=== PATIENT | male | born 1935 | race Caucasian/White ===

== ENCOUNTER 2017-02-19 07:14 | Day surgery (SDC) | payer MEDICARE, OTHER ==
[~2017-02-19 07:14] MED LIST: Lactated Ringers 1,000 ML IV SCH; Lidocaine 1%/Sod Bicarbonate in NS 8.4% 1 ML Syringe IV PRN; Propofol 200 MG/20 ML SDV ONE; Sodium Chloride 0.9% 10 ML Syringe FLUSH PRN
--- NOTE | 2017-02-19 07:47 | PCM.PREANE ---
Preanesthetic Assessment - Anesthesia/Transfusion/Family Hx Anesthesia History: Prior Anesthesia Without Reaction Family History of Anesthesia Reaction: No Transfusion History: No Prior Transfusion(s) - Review of Systems General: No Symptoms Pulmonary: No Symptoms Cardiovascular: No Symptoms Gastrointestinal: No symptoms Neurological: No Symptoms Other: Reports: None - Physical Assessment NPO Status Date: 02/18/17 NPO Status Time: 22:00 Height: 1.73 m Weight: 83.461 kg ASA Class: 2 Mental Status: Alert & Oriented x3 Airway Class: Mallampati = 1 Dentition: Reports: Partial Thyro-Mental Finger Breadths: 3 Mouth Opening Finger Breadths: 3 ROM/Head Extension: Full Lungs: Clear to auscultation, Normal respiratory effort Cardiovascular: Regular Rate, Regular Rhythm - Allergies Allergies/Adverse Reactions: Allergies Allergy/AdvReac Type Severity Reaction Status Date / Time ciprofloxacin [From Cipro] Allergy Rash Verified 02/16/17 12:47 rosuvastatin calcium Allergy Muscle Verified 02/16/17 12:47 [From Crestor] Weakness - Anesthesia Plan Beta Mark: Other (pt took coreg this am) Med Last Dose Date: 02/19/17 Med Last Dose Time: 06:45 - Acknowledgements Anesthesia Type Planned: MAC Pt an Appropriate Candidate for the Planned Anesthesia: Yes Alternatives and Risks of Anesthesia Discussed w Pt/Guardian: Yes Pt/Guardian Understands and Agrees with Anesthesia Plan: Yes PreAnesthesia Questionnaire HEENT History: Reports: Cataract, Hard of hearing, Impaired vision, Other (see below) Other HEENT History: left eye blindness Cardiovascular History: Reports: High cholesterol, Hypertension, Other (see below) Other Cardiovascular History: heart event monitor Respiratory History: Reports: None, Other (see below) Other Respiratory History: pulmonary nodule Gastrointestinal History: Reports: None Genitourinary History: Reports: BPH 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 Musculoskeletal History: Reports: Arthritis, Other (see below) Other Musculoskeletal History: polymyocystis Neurological History: Reports: None Psychiatric History: Reports: None Endocrine/Metabolic History: Reports: None Hematologic History: Reports: None Immunologic History: Reports: None Oncologic (Cancer) History: Reports: Non-Hodgkin's Lymphoma, Other (see below) Other Oncologic History: follicular lymphoma Dermatologic History: Reports: None - Past Surgical History Head Surgeries/Procedures: Reports: None HEENT Surgical History: Reports: Cataract surgery, Tonsillectomy Cardiovascular Surgical History: Reports: None Respiratory Surgical History: Reports: None GI Surgical History: Reports: Colonoscopy, Hernia, abdominal Female Surgical History: Reports: None Male Surgical History: Reports: None Endocrine Surgical History: Reports: None Neurological Surgical History: Reports: None Musculoskeletal Surgical History: Reports: None Oncologic Surgical History: Reports: None Dermatological Surgical History: Reports: None (no anesthetic complications noted) - SUBSTANCE USE Smoking Status *Q: Never Smoker Recreational Drug Use History: No - HOME MEDS Home Medications: Home Meds Clopidogrel [Plavix] 75 mg PO DAILY 03/20/16 [History] Ergocalciferol (Vitamin D2) [Vitamin D] 400 mg PO DAILY 03/20/16 [History] Niacin 250 mg PO DAILY 03/20/16 [History] [place]-3 Fatty Acids [Fish Oil] 300 mg PO DAILY 03/20/16 [History] Tamsulosin [Flomax] 0.4 mg PO DAILY 03/20/16 [History] amLODIPine Besylate [Amlodipine Besylate] 10 mg PO DAILY 03/20/16 [History] Aspirin [Children's Aspirin] 81 mg PO DAILY 02/16/17 [History] Carvedilol [Coreg] 25 mg PO BID 02/16/17 [History] Isosorbide Mononitrate [Imdur] 15 mg PO DAILY 02/16/17 [History] Nitroglycerin [Nitrostat] 0.4 mg SL ASDIRECTED PRN 02/16/17 [History] - CURRENT (IN HOUSE) MEDS Current Meds: Current Medications Lactated Ringer's (Ringers, Lactated) 1,000 mls @ 125 mls/hr IV ASDIRECTED ELIZABETH Stop: 02/19/17 23:00 Lidocaine/Sodium Bicarbonate (Buffered Lidocaine 1% In Ns 8.4%) 0.25 ml IV ONETIME PRN PRN Reason: Prior to IV Start Stop: 02/19/17 18:00 Sodium Chloride (Saline Flush) 10 ml FLUSH ASDIRECTED PRN PRN Reason: Keep Vein Open Stop: 02/19/17 18:00 Discontinued Medications Propofol (Diprivan 20 Ml) Confirm Administered Dose 200 mg .ROUTE .STK-MED ONE Stop: 02/19/17 07:06
--- NOTE | 2017-02-19 08:30 | PCM.OPNOTE ---
- General Post-Op/Procedure Note Date of Surgery/Procedure: 02/19/17 Operative Procedure(s): EGD with bx Pre Op Diagnosis: abnormal CT showing thickening of the stomach Post-Op Diagnosis: Same Anesthesia Technique: MAC Primary Surgeon: Aroldo Patel EBL in mLs: 0 Condition: Good
--- NOTE | 2017-02-19 08:31 | PCM48HPAN ---
Post Anesthesia Note - EVALUATION WITHIN 48HRS OF ANESTHETIC Vital Signs in Normal Range: Yes Patient Participated in Evaluation: Yes Respiratory Function Stable: Yes Airway Patent: Yes Cardiovascular Function Stable: Yes Hydration Status Stable: Yes Pain Control Satisfactory: Yes Nausea and Vomiting Control Satisfactory: Yes Mental Status Recovered: Yes
[2017-02-19 08:55] VITALS: BP 130/59
--- NOTE | 2017-02-19 13:07 | OR ---
DATE OF OPERATION: 02/19/2017 SURGEON: Aroldo Patel MD PREOPERATIVE DIAGNOSIS: Abnormal CT scan showing thickening of the stomach. POSTOPERATIVE DIAGNOSIS: Abnormal CT scan showing thickening of the stomach. OPERATION PERFORMED: Esophagogastroduodenoscopy with biopsy. FINDINGS: Some swelling around the ampulla, which was biopsied. The duodenal bulb showed some erythema, which was biopsied. The antrum showed some petechiae hemorrhage, which was biopsied. J-maneuver showed small sliding hiatal hernia with GE junction located between 35 and 40 cm. Rest of the esophagus was unremarkable. The Z-line at the GE junction was sharp. Mild duodenitis. Some chronic gastritis. ANESTHESIA: Procedure done under IV sedation. DESCRIPTION OF PROCEDURE: The patient was taken to the endoscopy room and placed in a supine position, connected to monitoring equipment, given IV sedation, and placed in left lateral position. Bite block was inserted and video Olympus gastroscope placed in the posterior oropharynx under direct vision, threaded past the cricopharyngeus, down the esophagus, and into the stomach. The stomach was insufflated, and the scope was passed through the pylorus to the second portion of the duodenum. Ampulla was seen showing some swelling, and this was biopsied. Duodenal bulb was unremarkable, except for some erythema, and this was biopsied. The antrum showed some petechiae and some thinning consistent with some chronic gastritis, and this was biopsied. Peristalsis was present in the stomach. J-maneuver showed hiatal hernia. Fundus, body, and cardia of the stomach were viewed. Scope withdrawn to the GE junction, which showed a sliding hiatal hernia. The GE junction did not have any acute pathology. The rest of the esophagus viewed and was normal. The patient tolerated the procedure and sent to recovery room in a stable condition. Specimen sent to pathology in a labeled container. The patient will be followed up in the clinic. ESTIMATED BLOOD LOSS: MMODAL /[id number]
== END 2017-02-19 09:16 | disposition home or self-care (01) ==
LOC: JD.SDS 07:14
PROVIDERS: ATTEND Surgery
PROC: 0DB98ZX Excision of Duodenum, Via Natural or Artificial Opening Endoscopic, Diagnostic (ICD-10-PCS; principal; 2017-02-19)
PROC: 0DB68ZX Excision of Stomach, Via Natural or Artificial Opening Endoscopic, Diagnostic (ICD-10-PCS; 2017-02-19)
PROC: 0DB48ZX Excision of Esophagogastric Junction, Via Natural or Artificial Opening Endoscopic, Diagnostic (ICD-10-PCS; 2017-02-19)
DX: K29.80 Duodenitis without bleeding (principal); K44.9 Diaphragmatic hernia without obstruction or gangrene; N40.0 Benign prostatic hyperplasia without lower urinary tract symptoms; E78.00 Pure hypercholesterolemia, unspecified; I10 Essential (primary) hypertension; M19.90 Unspecified osteoarthritis, unspecified site; C85.90 Non-Hodgkin lymphoma, unspecified, unspecified site; Z98.49 Cataract extraction status, unspecified eye; Z90.89 Acquired absence of other organs; Z98.890 Other specified postprocedural states; Z79.02 Long term (current) use of antithrombotics/antiplatelets; Z79.82 Long term (current) use of aspirin; Z79.899 Other long term (current) drug therapy; Z88.1 Allergy status to other antibiotic agents; Z88.8 Allergy status to other drugs, medicaments and biological substances
CPT/HCPCS: 43239; 88305; J7120; J2704

== ENCOUNTER 2018-04-12 10:26 | Emergency (ER) | payer MEDICARE, BC ==
[2018-04-12 10:59] VITALS: BP 140/72
[2018-04-12] MEDS ORDERED: Sodium Chloride 0.9% 10 ML Syringe FLUSH PRN (11:10)
--- NOTE | 2018-04-12 11:24 | EDM.PDOC ---
ED HPI GENERAL MEDICAL PROBLEM - General Chief Complaint: General Stated Complaint: WEAK X 3 DAY SINCE CHEMO Time Seen by Provider: 04/12/18 11:06 Source of Information: Reports: Patient History Limitations: Reports: No Limitations - History of Present Illness INITIAL COMMENTS - FREE TEXT/NARRATIVE: 82 y/o M with hx lymphoma presents with generalized weakness. He is on "maintenance" chemotherapy according to his . Completed a more intensive round of chemotherapy a few weeks ago and now is getting weekly chemo at [facility] in in [place]. Starting 3 days ago, started feeling generally weak. Has nasal congestion and a mild cough. No fever. Just feels weak all over. NO focal weakness. No body aches. No SOB/CP. No abd pain/vomiting/diarrhea. No dysuria. No skin complaint. Called his cancer center and was advised to come here. Next chemo session is scheduled for Sunday. - Related Data Allergies Allergy/AdvReac Type Severity Reaction Status Date / Time ciprofloxacin [From Cipro] Allergy Rash Verified 04/12/18 10:59 rosuvastatin calcium Allergy Muscle Verified 04/12/18 10:59 [From Crestor] Weakness Home Meds: Home Meds Clopidogrel [Plavix] 75 mg PO DAILY 03/20/16 [History] Tamsulosin [Flomax] 0.4 mg PO DAILY 03/20/16 [History] amLODIPine Besylate [Amlodipine Besylate] 10 mg PO DAILY 03/20/16 [History] Carvedilol [Coreg] 25 mg PO BID 02/16/17 [History] Past Medical History HEENT History: Reports: Cataract, Hard of Hearing, Impaired Vision, Other (See Below) Other HEENT History: left eye blindness Cardiovascular History: Reports: High Cholesterol, Hypertension, Other (See Below) Other Cardiovascular History: heart event monitor Respiratory History: Reports: None, Other (See Below) Other Respiratory History: pulmonary nodule Gastrointestinal History: Reports: None Genitourinary History: Reports: BPH 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 Musculoskeletal History: Reports: Arthritis, Other (See Below) Other Musculoskeletal History: polymyocystis Neurological History: Reports: None Psychiatric History: Reports: None Endocrine/Metabolic History: Reports: None Hematologic History: Reports: None Immunologic History: Reports: None Oncologic (Cancer) History: Reports: Non-Hodgkin's Lymphoma, Other (See Below) Other Oncologic History: follicular lymphoma Dermatologic History: Reports: None - Past Surgical History HEENT Surgical History: Reports: Cataract Surgery, Tonsillectomy GI Surgical History: Reports: Colonoscopy, Hernia, Abdominal Social & Family History - Family History Neurological: Reports: CVA (both parents) - Caffeine Use Caffeine Use: Reports: Coffee ED ROS GENERAL - Review of Systems Review Of Systems: See Below Constitutional: Reports: Weakness, Fatigue. Denies: Fever HEENT: Reports: Sinus Problem Respiratory: Reports: Cough. Denies: Shortness of Breath Cardiovascular: Denies: Chest Pain Endocrine: Reports: Fatigue GI/Abdominal: Denies: Abdominal Pain, Vomiting : Denies: Dysuria Musculoskeletal: Reports: No Symptoms Skin: Reports: No Symptoms Neurological: Reports: No Symptoms Psychiatric: Reports: No Symptoms Hematologic/Lymphatic: Reports: No Symptoms Immunologic: Reports: No Symptoms ED EXAM, GENERAL - Physical Exam Exam: See Below Exam Limited By: No Limitations General Appearance: Alert, WD/WN, No Apparent Distress Eye Exam: Bilateral Eye: EOMI, Normal Inspection, PERRL Ears: Normal External Exam Nose: Normal Inspection Throat/Mouth: Normal Inspection, Normal Oropharynx, Normal Voice, No Airway Compromise Head: Atraumatic, Normocephalic Neck: Normal Inspection, Supple, Non-Tender, Full Range of Motion Respiratory/Chest: No Respiratory Distress, Lungs Clear, Normal Breath Sounds, No Accessory Muscle Use, Chest Non-Tender Cardiovascular: Normal Peripheral Pulses, Regular Rate, Rhythm, No Edema, No Murmur GI/Abdominal: Soft, Non-Tender, No Distention. No: Rebound Back Exam: Normal Inspection. No: CVA Tenderness (L), CVA Tenderness (R) Extremities: Normal Inspection, No Pedal Edema Neurological: Alert, Oriented, Normal Cognition, No Motor/Sensory Deficits Psychiatric: Normal Affect, Normal Mood Skin Exam: Warm, Dry, Intact, Normal Color, No Rash Course - Vital Signs Last Recorded V/S: Last Vital Signs Temp 36.0 C 04/12/18 10:56 Pulse 62 04/12/18 10:56 Resp 16 04/12/18 10:56 BP 140/72 04/12/18 10:56 Pulse Ox 96 04/12/18 10:56 - Orders/Labs/Meds Orders: Active Orders 24 hr Category Date Time Status EKG 12 Lead [EKG Documentation Completion] [RC] STAT Care 04/12/18 11:11 Active Peripheral IV Care [RC] . DIRECTED Care 04/12/18 11:11 Active Peripheral IV Care [RC] . DIRECTED Care 04/12/18 11:11 Active Chest 1V Frontal [CR] Stat Exams 04/12/18 11:11 Taken CULTURE BLOOD [BC] Stat Lab 04/12/18 11:30 Received CULTURE BLOOD [BC] Stat Lab 04/12/18 11:35 Received UA W/MICROSCOPIC [URIN] Stat Lab 04/12/18 11:40 Ordered Blood Culture x2 Reflex Set [OM.PC] Stat Oth 04/12/18 11:11 Ordered Peripheral IV Insertion Adult [OM.PC] Routine Oth 04/12/18 11:11 Ordered Labs: Laboratory Tests 04/12/18 04/12/18 04/12/18 Range/Units 11:30 11:30 11:30 WBC 4.32 (4.23-9.07) K/mm3 RBC 4.44 L (4.63-6.08) M/mm3 Hgb 13.7 (13.7-17.5) gm/L Hct 38.9 L (40.1-51.0) % MCV 87.6 (79.0-92.2) fl MCH 30.9 (25.7-32.2) pg MCHC 35.2 (32.2-35.5) g/dl RDW Std Deviation 43.4 (35.1-43.9) fL Plt Count 64 L (163-337) K/mm3 MPV 9.9 (9.4-12.3) fl Neut % (Auto) 60.4 (34.0-67.9) % Lymph % (Auto) 15.3 L (21.8-53.1) % Yell % (Auto) 20.4 H (5.3-12.2) % Eos % (Auto) 3.2 (0.8-7.0) Baso % (Auto) 0.2 (0.1-1.2) % Neut # (Auto) 2.61 (1.78-5.38) K/mm3 Lymph # (Auto) 0.66 L (1.32-3.57) K/mm3 Yell # (Auto) 0.88 H (0.30-0.82) K/mm3 Eos # (Auto) 0.14 (0.04-0.54) K/mm3 Baso # (Auto) 0.01 (0.01-0.08) K/mm3 Manual Slide Review Abnormal smear Sodium 138 (136-145) mEq/L Potassium 4.4 (3.5-5.1) mEq/L Chloride 103 (98-107) mEq/L Carbon Dioxide 24 (21-32) mEq/L Anion Gap 15.4 H (5-15) BUN 24 H (7-18) mg/dL Creatinine 1.4 H (0.7-1.3) mg/dL Est Cr Clr Drug Dosing 38.68 mL/min Estimated GFR (MDRD) 48 (>60) mL/min BUN/Creatinine Ratio 17.1 (14-18) Glucose 114 (83-115) mg/dL Lactic Acid 0.9 (0.4-2.0) mmol/L Calcium 8.9 (8.5-10.1) mg/dL Magnesium 2.1 (1.8-2.4) mg/dl Total Bilirubin 0.7 (0.2-1.0) mg/dL AST 20 (15-37) U/L ALT 31 (16-63) U/L Alkaline Phosphatase 49 (46-116) U/L Troponin I < 0.017 (0.00-0.056) ng/mL Total Protein 6.7 (6.4-8.2) g/dl Albumin 3.7 (3.4-5.0) g/dl Globulin 3.0 gm/dL Albumin/Globulin Ratio 1.2 (1-2) Lipase 160 (73-393) U/L Urine Color (Yellow) Urine Appearance (Clear) Urine pH (5.0-8.0) Ur Specific [place] (1.005-1.030) Urine Protein (Negative) Urine Glucose (UA) (Negative) Urine Ketones (Negative) Urine Occult Blood (Negative) Urine Nitrite (Negative) Urine Bilirubin (Negative) Urine Urobilinogen (0.2-1.0) Ur Leukocyte Esterase (Negative) Urine RBC (0-5) /hpf Urine WBC (0-5) /hpf Ur Epithelial Cells (0-5) /hpf Urine Bacteria (FEW) /hpf Urine Mucus (FEW) /hpf 04/12/18 Range/Units 11:40 WBC (4.23-9.07) K/mm3 RBC (4.63-6.08) M/mm3 Hgb (13.7-17.5) gm/L Hct (40.1-51.0) % MCV (79.0-92.2) fl MCH (25.7-32.2) pg MCHC (32.2-35.5) g/dl RDW Std Deviation (35.1-43.9) fL Plt Count (163-337) K/mm3 MPV (9.4-12.3) fl Neut % (Auto) (34.0-67.9) % Lymph % (Auto) (21.8-53.1) % Yell % (Auto) (5.3-12.2) % Eos % (Auto) (0.8-7.0) Baso % (Auto) (0.1-1.2) % Neut # (Auto) (1.78-5.38) K/mm3 Lymph # (Auto) (1.32-3.57) K/mm3 Yell # (Auto) (0.30-0.82) K/mm3 Eos # (Auto) (0.04-0.54) K/mm3 Baso # (Auto) (0.01-0.08) K/mm3 Manual Slide Review Sodium (136-145) mEq/L Potassium (3.5-5.1) mEq/L Chloride (98-107) mEq/L Carbon Dioxide (21-32) mEq/L Anion Gap (5-15) BUN (7-18) mg/dL Creatinine (0.7-1.3) mg/dL Est Cr Clr Drug Dosing mL/min Estimated GFR (MDRD) (>60) mL/min BUN/Creatinine Ratio (14-18) Glucose (83-115) mg/dL Lactic Acid (0.4-2.0) mmol/L Calcium (8.5-10.1) mg/dL Magnesium (1.8-2.4) mg/dl Total Bilirubin (0.2-1.0) mg/dL AST (15-37) U/L ALT (16-63) U/L Alkaline Phosphatase (46-116) U/L Troponin I (0.00-0.056) ng/mL Total Protein (6.4-8.2) g/dl Albumin (3.4-5.0) g/dl Globulin gm/dL Albumin/Globulin Ratio (1-2) Lipase (73-393) U/L Urine Color Yellow (Yellow) Urine Appearance Clear (Clear) Urine pH 6.5 (5.0-8.0) Ur Specific [place] 1.015 (1.005-1.030) Urine Protein Negative (Negative) Urine Glucose (UA) Negative (Negative) Urine Ketones Negative (Negative) Urine Occult Blood Negative (Negative) Urine Nitrite Negative (Negative) Urine Bilirubin Negative (Negative) Urine Urobilinogen 0.2 (0.2-1.0) Ur Leukocyte Esterase Negative (Negative) Urine RBC Not seen (0-5) /hpf Urine WBC 0-5 (0-5) /hpf Ur Epithelial Cells Not seen (0-5) /hpf Urine Bacteria Few (FEW) /hpf Urine Mucus Not seen (FEW) /hpf Meds: Medications Discontinued Medications Generic Name Dose Route Start Last Admin Trade Name Freq PRN Reason Stop Dose Admin Sodium Chloride 10 ml 04/12/18 11:10 04/12/18 12:12 Saline Flush FLUSH 10 ml ASDIRECTED PRN Administration Keep Vein Open - Re-Assessments/Exams Free Text/Narrative Re-Assessment/Exam: 04/12/18 17:24 Vitals normal. EKG shows NSR, T wave inversions leads III and aVF, otherwise normal. Labs including CBC, chemistry, LFT's, UA all normal. CXR shows no acute abnormality. No clear explanation for his vague weakness. No exam weakness. He does have URI symptoms. Will dc, suggested he discuss his symptoms with his oncologist as well. Discussed return precautions. Departure - Departure Time of Disposition: 13:46 Disposition: Home, Self-Care 01 Clinical Impression: Weakness - Discharge Information Instructions: Fatigue Referrals: Heidy Berger MD [Physician] - Forms: ED Department Discharge Additional Instructions: 1. Follow up with your oncologist as soon as possible 2. Return to the ED if worse, especially for fever, difficulty breathing, severe pain, vomiting, or other concerning symptoms. - My Orders Last 24 Hours: My Active Orders 04/12/18 11:11 EKG 12 Lead [EKG Documentation Completion] [RC] STAT Peripheral IV Care [RC] . DIRECTED Peripheral IV Care [RC] . DIRECTED Chest 1V Frontal [CR] Stat Blood Culture x2 Reflex Set [OM.PC] Stat Peripheral IV Insertion Adult [OM.PC] Routine 04/12/18 11:30 CULTURE BLOOD [BC] Stat 04/12/18 11:35 CULTURE BLOOD [BC] Stat 04/12/18 11:40 UA W/MICROSCOPIC [URIN] Stat - Assessment/Plan Last 24 Hours: My Active Orders 04/12/18 11:11 EKG 12 Lead [EKG Documentation Completion] [RC] STAT Peripheral IV Care [RC] . DIRECTED Peripheral IV Care [RC] . DIRECTED Chest 1V Frontal [CR] Stat Blood Culture x2 Reflex Set [OM.PC] Stat Peripheral IV Insertion Adult [OM.PC] Routine 04/12/18 11:30 CULTURE BLOOD [BC] Stat 04/12/18 11:35 CULTURE BLOOD [BC] Stat 04/12/18 11:40 UA W/MICROSCOPIC [URIN] Stat
--- NOTE | 2018-04-16 12:16 | CR ---
Chest: Portable view of the chest was obtained. Comparison: Prior chest x-ray of 03/20/16. Heart size and mediastinum are within normal limits for portable technique. Lungs are clear with no acute parenchymal densities. Right-sided infusion port is seen. Scattered degenerative change is noted within the spine. Small radiopacity is seen overlying the left medial diaphragm which is stable from prior exam. Impression: 1. Incidental findings. Nothing acute is seen on portable chest x-ray. Diagnostic code #2
== END 2018-04-12 14:07 | disposition home or self-care (01) ==
LOC: JD.ED 10:26
DX: R53.1 Weakness (principal); E78.00 Pure hypercholesterolemia, unspecified; I10 Essential (primary) hypertension; Z88.1 Allergy status to other antibiotic agents; Z88.8 Allergy status to other drugs, medicaments and biological substances; Z79.899 Other long term (current) drug therapy
CPT/HCPCS: 36415; 71045; 80053; 81001; 83605; 83690; 83735; 84484; 85025; 87040; 93005; 99285; J7050; 93010; 99283

== ENCOUNTER 2018-04-30 23:38 | Observation (INO) | payer MEDICARE ==
[2018-05-01] MEDS: Sodium Chloride 0.9% 1,000 ML IV SCH ×10 (00:48→18:58)
--- NOTE | 2018-05-01 01:53 | EDM.PDOC ---
ED HPI GENERAL MEDICAL PROBLEM - General Chief Complaint: Fever Stated Complaint: FEVER LOW BLOOD PRESSURE Time Seen by Provider: 05/01/18 00:16 Source of Information: Reports: Patient, Family () History Limitations: Reports: No Limitations - History of Present Illness INITIAL COMMENTS - FREE TEXT/NARRATIVE: The patient states that he has lymphoma, currently receiving chemotherapy, with his most recent dose on 03/07/2018. He now presents with feeling tired and generally weak for more than a week. He has had a dry cough for the past 3-4 days, then developed a fever to around 101 at 22:00 this evening. The patient's states that his blood pressure was low at 115/34 this past afternoon, although it was normal short while after, and his blood pressure is normal here in the ED. The patient denies recent lightheadedness when he stands. No recent nausea, vomiting, constipation, or diarrhea. No recent urinary symptoms. No abdominal pain. No recent chest pain or palpitations. The patient states that he always gets these symptoms after receiving chemotherapy, although it is usually within the few days of his receiving the chemotherapy, not 4 weeks afterwards, as in this case. The patient's PCP is Dr. Iyer. - Related Data Allergies Allergy/AdvReac Type Severity Reaction Status Date / Time ciprofloxacin [From Cipro] Allergy Rash Verified 04/30/18 23:48 rosuvastatin calcium Allergy Muscle Verified 04/30/18 23:48 [From Crestor] Weakness Home Meds: Home Meds Tamsulosin [Flomax] 0.4 mg PO DAILY 03/20/16 [History] amLODIPine Besylate [Amlodipine Besylate] 10 mg PO DAILY 03/20/16 [History] Carvedilol [Coreg] 25 mg PO BID 02/16/17 [History] Albuterol [Proventil HFA] 2 puff INH Q4H PRN 04/29/18 [History] Aspirin [Halfprin] 81 mg PO DAILY 04/29/18 [History] Clopidogrel [Plavix] 75 mg PO DAILY 04/29/18 [History] Dexamethasone [Decadron] 4 mg PO ASDIRECTED 04/29/18 [History] Fluticasone/Vilanterol [Breo Ellipta 200-25 Mcg INH] 1 each IH DAILY 04/29/18 [ History] Isosorbide Mononitrate [Imdur] 15 mg PO DAILY 04/29/18 [History] Nitroglycerin [Nitrostat] 0.4 mg SL ASDIRECTED PRN 04/29/18 [History] Obinutuzumab [Gazyva] 1,000 mg IV ASDIRECTED 04/29/18 [History] Sharon-3/DHA/Epa/Fish Oil [Sharon 3 500 Softgel] 2 each PO DAILY 04/29/18 [History ] Ondansetron HCl [Zofran] 4 mg PO Q6HR PRN 04/29/18 [History] Promethazine [Phenergan] 0.5 ml TOP ASDIRECTED PRN 04/29/18 [History] Past Medical History HEENT History: Reports: Hard of Hearing, 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) Cardiovascular History: Reports: CAD, High Cholesterol, Hypertension Genitourinary History: Reports: BPH, Chronic Renal Insuffiency Musculoskeletal History: Reports: Arthritis, Other (See Below) (Polymyositis) Hematologic History: Reports: Other (See Below) (Pancytopenia due to chemotherapy) Oncologic (Cancer) History: Reports: Non-Hodgkin's Lymphoma, Other (See Below) ( Follicular lymphoma) - Past Surgical History HEENT Surgical History: Reports: Cataract Surgery, Oral Surgery ([place] teeth extraction), Tonsillectomy Cardiovascular Surgical History: Reports: Coronary Artery Stent (x 2, January 2018 ), Vascular Surgery (Right Port-A-Cath) GI Surgical History: Reports: Colonoscopy, Hernia, Inguinal (right) Social & Family History - Family History Neurological: Reports: CVA - Tobacco Use Smoking Status *Q: Never Smoker - Caffeine Use Caffeine Use: Reports: Coffee - Alcohol Use Alcohol Use History: Yes Alcohol Use Frequency: Socially - Recreational Drug Use Recreational Drug Use: No - Living Situation & Occupation Living situation: Reports: , with Spouse 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 ED EXAM, GENERAL - Physical Exam Exam: See Below Exam Limited By: No Limitations General Appearance: Alert, WD/WN, No Apparent Distress Ears: Normal External Exam, Hearing Loss Nose: Normal Inspection, No Blood Throat/Mouth: Normal Inspection, Normal Lips, Normal Voice, No Airway Compromise Head: Atraumatic, Normocephalic Neck: Normal Inspection, Full Range of Motion Respiratory/Chest: No Respiratory Distress, Lungs Clear, Normal Breath Sounds, No Accessory Muscle Use Cardiovascular: Normal Peripheral Pulses, Regular Rate, Rhythm, No Gallop, No JVD, No Murmur, No Rub Peripheral Pulses: 4+: Radial (L), Radial (R) GI/Abdominal: Normal Bowel Sounds, Soft, Non-Tender, No Organomegaly, No Distention, No Abnormal Bruit, No Mass (Male) Exam: Deferred Rectal (Males) Exam: Deferred Back Exam: Normal Inspection, Full Range of Motion, NT Extremities: Normal Inspection, Normal Range of Motion, Normal Capillary Refill , Other (Bilateral knee-high compression stockings on) Neurological: Alert, Oriented, Normal Cognition, No Motor/Sensory Deficits Psychiatric: Normal Affect Skin Exam: Warm, Dry, Intact, Normal Color, No Rash EKG INTERPRETATION EKG Date: 05/01/18 Time: 00:45 Rhythm: NSR Rate (Beats/Min): 69 [place]: Normal P-Wave: Present QRS: Normal ST-T: Normal (T-wave inversion in III, aVF) QT: Normal Comparison: No Change (04/12/2018) Course - Vital Signs Last Recorded V/S: Last Vital Signs Temp 38.1 C 04/30/18 23:46 Pulse 75 04/30/18 23:46 Resp 16 04/30/18 23:46 BP 137/64 04/30/18 23:46 Pulse Ox 91 L 04/30/18 23:46 Orthostatic Blood Pressure [ 142/75 Standing] Orthostatic Blood Pressure [ 128/65 Sitting] Orthostatic Blood Pressure [ 112/57 Supine] - Orders/Labs/Meds Orders: Active Orders 24 hr Category Date Time Status EKG Documentation Completion [RC] STAT Care 05/01/18 00:34 Active Orthostatic Vital Signs [RC] STAT Care 05/01/18 01:57 Active Orthostatic Vital Signs [RC] STAT Care 05/01/18 03:16 Active Chest 2V [CR] Stat Exams 05/01/18 00:37 Taken CULTURE BLOOD [BC] Stat Lab 05/01/18 00:45 Received CULTURE BLOOD [BC] Stat Lab 05/01/18 00:55 Received UA W/MICROSCOPIC [URIN] Stat Lab 05/01/18 01:00 Ordered Sodium Chloride 0.9% @ 150 MLS/HR (1000ml Bag) Med 05/01/18 04:45 Ordered Sodium Chloride 0.9% [Normal Saline] 1,000 ml IV ASDIRECTED Sodium Chloride 0.9% [Normal Saline] 1,000 ml Med 05/01/18 00:45 Active IV ASDIRECTED Blood Culture x2 Reflex Set [OM.PC] Stat Oth 05/01/18 00:34 Ordered Medication Orders Sodium Chloride (Normal Saline) 1,000 mls @ 150 mls/hr IV ASDIRECTED ELIZABETH Last Infusion: 05/01/18 02:09 Dose: 999 mls/hr Admin: 05/01/18 00:48 Dose: 150 mls/hr Sodium Chloride (Normal Saline) 1,000 mls @ 150 mls/hr IV ASDIRECTED ELIZABETH Labs: Laboratory Tests 05/01/18 05/01/18 05/01/18 Range/Units 00:45 00:45 00:45 WBC 3.25 L (4.23-9.07) K/mm3 RBC 3.95 L (4.63-6.08) M/mm3 Hgb 12.1 L (13.7-17.5) gm/L Hct 34.1 L (40.1-51.0) % MCV 86.3 (79.0-92.2) fl MCH 30.6 (25.7-32.2) pg MCHC 35.5 (32.2-35.5) g/dl RDW Std Deviation 40.3 (35.1-43.9) fL Plt Count 112 L (163-337) K/mm3 MPV 9.7 (9.4-12.3) fl Neutrophils % (Manual) 61 H (40-60) % Band Neutrophils % 0 (0-10) % Lymphocytes % (Manual) 14 L (20-40) % Atypical Lymphs % 2 % Monocytes % (Manual) 15 H (2-10) % Eosinophils % (Manual) 6 (0.8-7.0) % Basophils % (Manual) 1 (0.2-1.2) Myelocytes % 1 Platelet Estimate Decreased Plt Morphology Comment Normal RBC Morph Comment Normal PT 10.3 (9.5-12.1) SECONDS INR 0.94 APTT 29 (24-31) SECONDS D-Dimer, Quantitative 0.78 H (0.19-0.50) mg/L Puncture Site ABG pH (7.35-7.45) ABG pCO2 (35.0-45.0) mmHg ABG pO2 (80.0-100.0) mmHg ABG HCO3 (22.0-26.0) meq/L ABG O2 Saturation (96.0-97.0) % ABG Base Excess (-2-2.0) A-a Gradient mmHg O2 Delivery Device FiO2 (21.00-100.00) % Sodium 136 (136-145) mEq/L Potassium 3.8 (3.5-5.1) mEq/L Chloride 104 (98-107) mEq/L Carbon Dioxide 25 (21-32) mEq/L Anion Gap 10.8 (5-15) BUN 22 H (7-18) mg/dL Creatinine 1.4 H (0.7-1.3) mg/dL Est Cr Clr Drug Dosing 34.78 mL/min Estimated GFR (MDRD) 48 (>60) mL/min BUN/Creatinine Ratio 15.7 (14-18) Glucose 131 H (83-115) mg/dL Lactic Acid (0.4-2.0) mmol/L Calcium 8.4 L (8.5-10.1) mg/dL Magnesium 1.9 (1.8-2.4) mg/dl Total Bilirubin 0.7 (0.2-1.0) mg/dL AST 23 (15-37) U/L ALT 25 (16-63) U/L Alkaline Phosphatase 45 L (46-116) U/L Troponin I < 0.017 (0.00-0.056) ng/mL NT-Pro-B Natriuret Pep (0-450) pg/mL Total Protein 6.6 (6.4-8.2) g/dl Albumin 3.2 L (3.4-5.0) g/dl Globulin 3.4 gm/dL Albumin/Globulin Ratio 0.9 L (1-2) Urine Color (Yellow) Urine Appearance (Clear) Urine pH (5.0-8.0) Ur Specific [place] (1.005-1.030) Urine Protein (Negative) Urine Glucose (UA) (Negative) Urine Ketones (Negative) Urine Occult Blood (Negative) Urine Nitrite (Negative) Urine Bilirubin (Negative) Urine Urobilinogen (0.2-1.0) Ur Leukocyte Esterase (Negative) Urine RBC (0-5) /hpf Urine WBC (0-5) /hpf Ur Epithelial Cells (0-5) /hpf Urine Bacteria (FEW) /hpf Urine Mucus (FEW) /hpf 05/01/18 05/01/18 05/01/18 Range/Units 00:45 00:45 01:00 WBC (4.23-9.07) K/mm3 RBC (4.63-6.08) M/mm3 Hgb (13.7-17.5) gm/L Hct (40.1-51.0) % MCV (79.0-92.2) fl MCH (25.7-32.2) pg MCHC (32.2-35.5) g/dl RDW Std Deviation (35.1-43.9) fL Plt Count (163-337) K/mm3 MPV (9.4-12.3) fl Neutrophils % (Manual) (40-60) % Band Neutrophils % (0-10) % Lymphocytes % (Manual) (20-40) % Atypical Lymphs % % Monocytes % (Manual) (2-10) % Eosinophils % (Manual) (0.8-7.0) % Basophils % (Manual) (0.2-1.2) Myelocytes % Platelet Estimate Plt Morphology Comment RBC Morph Comment PT (9.5-12.1) SECONDS INR APTT (24-31) SECONDS D-Dimer, Quantitative (0.19-0.50) mg/L Puncture Site Rt brachial ABG pH 7.44 (7.35-7.45) ABG pCO2 32.2 L (35.0-45.0) mmHg ABG pO2 68.0 L (80.0-100.0) mmHg ABG HCO3 21.5 L (22.0-26.0) meq/L ABG O2 Saturation 94.2 L (96.0-97.0) % ABG Base Excess -1.5 (-2-2.0) A-a Gradient 26 mmHg O2 Delivery Device Room air FiO2 21.00 (21.00-100.00) % Sodium (136-145) mEq/L Potassium (3.5-5.1) mEq/L Chloride (98-107) mEq/L Carbon Dioxide (21-32) mEq/L Anion Gap (5-15) BUN (7-18) mg/dL Creatinine (0.7-1.3) mg/dL Est Cr Clr Drug Dosing mL/min Estimated GFR (MDRD) (>60) mL/min BUN/Creatinine Ratio (14-18) Glucose (83-115) mg/dL Lactic Acid 0.5 (0.4-2.0) mmol/L Calcium (8.5-10.1) mg/dL Magnesium (1.8-2.4) mg/dl Total Bilirubin (0.2-1.0) mg/dL AST (15-37) U/L ALT (16-63) U/L Alkaline Phosphatase (46-116) U/L Troponin I (0.00-0.056) ng/mL NT-Pro-B Natriuret Pep 190 (0-450) pg/mL Total Protein (6.4-8.2) g/dl Albumin (3.4-5.0) g/dl Globulin gm/dL Albumin/Globulin Ratio (1-2) Urine Color (Yellow) Urine Appearance (Clear) Urine pH (5.0-8.0) Ur Specific [place] (1.005-1.030) Urine Protein (Negative) Urine Glucose (UA) (Negative) Urine Ketones (Negative) Urine Occult Blood (Negative) Urine Nitrite (Negative) Urine Bilirubin (Negative) Urine Urobilinogen (0.2-1.0) Ur Leukocyte Esterase (Negative) Urine RBC (0-5) /hpf Urine WBC (0-5) /hpf Ur Epithelial Cells (0-5) /hpf Urine Bacteria (FEW) /hpf Urine Mucus (FEW) /hpf 05/01/18 Range/Units 01:00 WBC (4.23-9.07) K/mm3 RBC (4.63-6.08) M/mm3 Hgb (13.7-17.5) gm/L Hct (40.1-51.0) % MCV (79.0-92.2) fl MCH (25.7-32.2) pg MCHC (32.2-35.5) g/dl RDW Std Deviation (35.1-43.9) fL Plt Count (163-337) K/mm3 MPV (9.4-12.3) fl Neutrophils % (Manual) (40-60) % Band Neutrophils % (0-10) % Lymphocytes % (Manual) (20-40) % Atypical Lymphs % % Monocytes % (Manual) (2-10) % Eosinophils % (Manual) (0.8-7.0) % Basophils % (Manual) (0.2-1.2) Myelocytes % Platelet Estimate Plt Morphology Comment RBC Morph Comment PT (9.5-12.1) SECONDS INR APTT (24-31) SECONDS D-Dimer, Quantitative (0.19-0.50) mg/L Puncture Site ABG pH (7.35-7.45) ABG pCO2 (35.0-45.0) mmHg ABG pO2 (80.0-100.0) mmHg ABG HCO3 (22.0-26.0) meq/L ABG O2 Saturation (96.0-97.0) % ABG Base Excess (-2-2.0) A-a Gradient mmHg O2 Delivery Device FiO2 (21.00-100.00) % Sodium (136-145) mEq/L Potassium (3.5-5.1) mEq/L Chloride (98-107) mEq/L Carbon Dioxide (21-32) mEq/L Anion Gap (5-15) BUN (7-18) mg/dL Creatinine (0.7-1.3) mg/dL Est Cr Clr Drug Dosing mL/min Estimated GFR (MDRD) (>60) mL/min BUN/Creatinine Ratio (14-18) Glucose (83-115) mg/dL Lactic Acid (0.4-2.0) mmol/L Calcium (8.5-10.1) mg/dL Magnesium (1.8-2.4) mg/dl Total Bilirubin (0.2-1.0) mg/dL AST (15-37) U/L ALT (16-63) U/L Alkaline Phosphatase (46-116) U/L Troponin I (0.00-0.056) ng/mL NT-Pro-B Natriuret Pep (0-450) pg/mL Total Protein (6.4-8.2) g/dl Albumin (3.4-5.0) g/dl Globulin gm/dL Albumin/Globulin Ratio (1-2) Urine Color Yellow (Yellow) Urine Appearance Clear (Clear) Urine pH 7.0 (5.0-8.0) Ur Specific [place] 1.010 (1.005-1.030) Urine Protein Negative (Negative) Urine Glucose (UA) Negative (Negative) Urine Ketones Negative (Negative) Urine Occult Blood Negative (Negative) Urine Nitrite Negative (Negative) Urine Bilirubin Negative (Negative) Urine Urobilinogen 0.2 (0.2-1.0) Ur Leukocyte Esterase Negative (Negative) Urine RBC 0-5 (0-5) /hpf Urine WBC 0-5 (0-5) /hpf Ur Epithelial Cells 0-5 (0-5) /hpf Urine Bacteria Rare (FEW) /hpf Urine Mucus Not seen (FEW) /hpf Meds: Medications Generic Name Dose Route Start Last Admin Trade Name Freq PRN Reason Stop Dose Admin Sodium Chloride 1,000 mls @ 150 mls/hr 05/01/18 00:45 05/01/18 02:09 Normal Saline IV 999 mls/hr ASDIRECTED ELIZABETH Infusion Sodium Chloride 1,000 mls @ 150 mls/hr 05/01/18 04:45 Normal Saline IV ASDIRECTED ELIZABETH Discontinued Medications Generic Name Dose Route Start Last Admin Trade Name Freq PRN Reason Stop Dose Admin Sodium Chloride 1,000 mls @ 999 mls/hr 05/01/18 02:07 Normal Saline IV 05/01/18 03:07 ONETIME ONE Sodium Chloride 1,000 mls @ 999 mls/hr 05/01/18 03:15 05/01/18 04:21 Normal Saline IV 05/01/18 04:15 999 mls/hr ONETIME ONE Administration - Re-Assessments/Exams Free Text/Narrative Re-Assessment/Exam: 05/01/18 01:27 2-view chest radiograph reviewed. Cardiac silhouette is within normal limits. No pulmonary vascular congestion. No pleural effusions. No focal infiltrate. No pneumothorax. Right-sided Port-A-Cath incidentally noted. There is a radiopaque density anterior to the xiphoid process noted. Formal read per the Radiologist pending. 05/01/18 02:07 The patient has pancytopenia, but his anemia is not so severe as to require transfusion. The patient's BUN/Cr is elevated at 22/1.4, unchanged from 04/12/2018. His BUN/ Cr was 20/1.5 on 03/20/2016. The patient's D-dimer is mildly elevated at 0.78, well within the expected range for a patient of this age with his renal function and history of cancer. The patient is orthostatic. I have ordered 1 L normal saline bolus, to be followed by repeat orthostatics. 05/01/18 03:16 Following 1 L NS, the patient is still orthostatic. I have ordered a second liter of NS, after which we will again check orthostatics. 05/01/18 04:32 Following a second liter of NS, the patient is still orthostatic. I'm going to recommend that the patient be admitted for additional IV fluid. 05/01/18 04:39 The above was discussed with the patient and his . He is agreeable to being placed into observation. Case then discussed with Dr. Ladd at 04:35. She accepts the patient for placement into observation on telemetry. She would like me to order an 8 AM cortisol level. Departure - Departure Time of Disposition: 04:40 Disposition: Refer to Observation Condition: Good Clinical Impression: Intravascular volume depletion - Discharge Information - My Orders Last 24 Hours: My Active Orders 05/01/18 00:34 EKG Documentation Completion [RC] STAT Blood Culture x2 Reflex Set [OM.PC] Stat 05/01/18 00:37 Chest 2V [CR] Stat 05/01/18 00:45 CULTURE BLOOD [BC] Stat Sodium Chloride 0.9% [Normal Saline] 1,000 ml IV ASDIRECTED 05/01/18 00:55 CULTURE BLOOD [BC] Stat 05/01/18 01:00 UA W/MICROSCOPIC [URIN] Stat 05/01/18 01:57 Orthostatic Vital Signs [RC] STAT 05/01/18 03:16 Orthostatic Vital Signs [RC] STAT 05/01/18 04:45 Sodium Chloride 0.9% @ 150 MLS/HR (1000ml Bag) Sodium Chloride 0.9% [Normal Saline] 1,000 ml IV ASDIRECTED - Assessment/Plan Last 24 Hours: My Active Orders 05/01/18 00:34 EKG Documentation Completion [RC] STAT Blood Culture x2 Reflex Set [OM.PC] Stat 05/01/18 00:37 Chest 2V [CR] Stat 05/01/18 00:45 CULTURE BLOOD [BC] Stat Sodium Chloride 0.9% [Normal Saline] 1,000 ml IV ASDIRECTED 05/01/18 00:55 CULTURE BLOOD [BC] Stat 05/01/18 01:00 UA W/MICROSCOPIC [URIN] Stat 05/01/18 01:57 Orthostatic Vital Signs [RC] STAT 05/01/18 03:16 Orthostatic Vital Signs [RC] STAT 05/01/18 04:45 Sodium Chloride 0.9% @ 150 MLS/HR (1000ml Bag) Sodium Chloride 0.9% [Normal Saline] 1,000 ml IV ASDIRECTED
[2018-05-01] MEDS ORDERED: Sodium Chloride 0.9% 1,000 ML IV ONE ×3 (02:07→05:23)
[2018-05-01] MEDS ORDERED: Nitroglycerin 0.4 MG Tab.SL SL PRN (10:32)
--- NOTE | 2018-05-01 10:32 | PCM.HP ---
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 The last treatment was March 29. He presented to the ED with a complaint of an elevated temperature, 101.0F. However on site his temp was less than 100.5F. He is being admitted for dehydration associated with orthostatics. He has had a 10 pound wgt loss, nauseas and vomiting The patient is being admitted to obs with telemetry; he is a full code.J Onset of Symptoms: Reports: Gradual Symptom Onset Date: 04/26/18 Duration of Symptoms: Reports: Day(s):, Getting Worse Location: Reports: Generalized Severity: Moderate Improves with: Reports: Medication Worsens with: Reports: None Context: Reports: Activity/Exercise, Exertion Associated Symptoms: Reports: Cough, Loss of Appetite, Malaise, Nausea/Vomiting , Weakness - Related Data Allergies/Adverse Reactions: Allergies Allergy/AdvReac Type Severity Reaction Status Date / Time ciprofloxacin [From Cipro] Allergy Rash Verified 04/30/18 23:48 rosuvastatin calcium Allergy Muscle Verified 04/30/18 23:48 [From Crestor] Weakness Home Medications: Home Meds Tamsulosin [Flomax] 0.4 mg PO DAILY 03/20/16 [History] amLODIPine Besylate [Amlodipine Besylate] 10 mg PO DAILY 03/20/16 [History] Carvedilol [Coreg] 25 mg PO BID 02/16/17 [History] Albuterol [Proventil HFA] 2 puff INH Q4H PRN 04/29/18 [History] Aspirin [Halfprin] 81 mg PO DAILY 04/29/18 [History] Clopidogrel [Plavix] 75 mg PO DAILY 04/29/18 [History] Dexamethasone [Decadron] 4 mg PO ASDIRECTED 04/29/18 [History] Fluticasone/Vilanterol [Breo Ellipta 200-25 Mcg INH] 1 each IH DAILY 04/29/18 [ History] Isosorbide Mononitrate [Imdur] 15 mg PO DAILY 04/29/18 [History] Nitroglycerin [Nitrostat] 0.4 mg SL ASDIRECTED PRN 04/29/18 [History] Obinutuzumab [Gazyva] 1,000 mg IV ASDIRECTED 04/29/18 [History] [place]-3/DHA/Epa/Fish Oil [[place] 3 500 Softgel] 2 each PO DAILY 04/29/18 [History ] Ondansetron HCl [Zofran] 4 mg PO Q6HR PRN 04/29/18 [History] Promethazine [Phenergan] 0.5 ml TOP ASDIRECTED PRN 04/29/18 [History] Past Medical History HEENT History: Reports: Hard of Hearing, Impaired Vision Other HEENT History: blind in left eye Cardiovascular History: Reports: CAD, High Cholesterol, Hypertension Other Cardiovascular History: heart event monitor Respiratory History: Reports: None, Other (See Below) Other Respiratory History: pulmonary nodule Gastrointestinal History: Reports: None Genitourinary History: Reports: BPH, Chronic Renal Insuffiency 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 Musculoskeletal History: Reports: Arthritis, Other (See Below) Other Musculoskeletal History: polymyocystis Neurological History: Reports: None Psychiatric History: Reports: None Endocrine/Metabolic History: Reports: None Hematologic History: Reports: Other (See Below) Immunologic History: Reports: Immunosuppression Oncologic (Cancer) History: Reports: Non-Hodgkin's Lymphoma, Other (See Below) Other Oncologic History: follicular lymphoma Dermatologic History: Reports: None - Infectious Disease History Infectious Disease History: Reports: Chicken Pox, Measles, Mumps - Past Surgical History Head Surgeries/Procedures: Reports: None HEENT Surgical History: Reports: Cataract Surgery, Oral Surgery, Tonsillectomy Cardiovascular Surgical History: Reports: Coronary Artery Stent, Vascular Surgery GI Surgical History: Reports: Colonoscopy, Hernia, Inguinal Dermatological Surgical History: Reports: Skin Biopsy Social & Family History - Family History Family Medical History: Noncontributory Neurological: Reports: CVA - Tobacco Use Smoking Status *Q: Never Smoker - Caffeine Use Caffeine Use: Reports: Coffee - Recreational Drug Use Recreational Drug Use: No - Living Situation & Occupation Living situation: Reports: , with Spouse 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) H&P Review of Systems - Review of Systems: Review Of Systems: See Below General: Reports: Malaise, Weakness, Fatigue, Decreased Appetite, Weight Loss HEENT: Reports: No Symptoms Pulmonary: Reports: Shortness of Breath Cardiovascular: Reports: Lightheadedness Gastrointestinal: Reports: Decreased Appetite, Nausea Genitourinary: Reports: No Symptoms Musculoskeletal: Reports: No Symptoms Skin: Reports: No Symptoms Psychiatric: Reports: No Symptoms Neurological: Reports: No Symptoms Hematologic/Lymphatic: Reports: No Symptoms Immunologic: Reports: No Symptoms Exam - Exam Exam: See Below - Vital Signs Vital Signs: Last Vital Signs Temp 37.0 C 05/01/18 05:25 Pulse 73 05/01/18 05:25 Resp 16 05/01/18 05:25 BP 127/78 05/01/18 05:25 Pulse Ox 94 L 05/01/18 05:25 Orthostatic Blood Pressure [ 142/75 Standing] Orthostatic Blood Pressure [ 128/65 Sitting] Orthostatic Blood Pressure [ 112/57 Supine] Weight: 89.584 kg - Exam Quality Assessment: Supplemental Oxygen General: Alert, Oriented, Cooperative HEENT: Conjunctiva Clear, Normal Nasal Septum, Posterior Pharynx Clear, Pupils Equal, Pupils Reactive, PERRLA Neck: Trachea Midline Lungs: Normal Respiratory Effort, Decreased Breath Sounds, Rhonchi Cardiovascular: Regular Rate, Regular Rhythm GI/Abdominal Exam: Normal Bowel Sounds, Soft, Non-Tender, No Organomegaly, No Distention (Male) Exam: Deferred Rectal (Males) Exam: Deferred Back Exam: Normal Inspection Extremities: Normal Inspection, Non-Tender, Normal Capillary Refill Skin: Warm Neurological: Cranial Nerves Intact Neuro Extensive - Mental Status: Alert, Oriented x3 Neuro Extensive - Motor, Sensory, Reflexes: CN II-XII Intact Psychiatric: Alert - Patient Data Lab Results Last 24 hrs: Laboratory Results - last 24 hr 05/01/18 05/01/18 05/01/18 Range/Units 00:45 00:45 00:45 WBC 3.25 L (4.23-9.07) K/mm3 RBC 3.95 L (4.63-6.08) M/mm3 Hgb 12.1 L (13.7-17.5) gm/L Hct 34.1 L (40.1-51.0) % MCV 86.3 (79.0-92.2) fl MCH 30.6 (25.7-32.2) pg MCHC 35.5 (32.2-35.5) g/dl RDW Std Deviation 40.3 (35.1-43.9) fL Plt Count 112 L (163-337) K/mm3 MPV 9.7 (9.4-12.3) fl Neutrophils % (Manual) 61 H (40-60) % Band Neutrophils % 0 (0-10) % Lymphocytes % (Manual) 14 L (20-40) % Atypical Lymphs % 2 % Monocytes % (Manual) 15 H (2-10) % Eosinophils % (Manual) 6 (0.8-7.0) % Basophils % (Manual) 1 (0.2-1.2) Myelocytes % 1 Platelet Estimate Decreased Plt Morphology Comment Normal RBC Morph Comment Normal PT 10.3 (9.5-12.1) SECONDS INR 0.94 APTT 29 (24-31) SECONDS D-Dimer, Quantitative 0.78 H (0.19-0.50) mg/L Puncture Site ABG pH (7.35-7.45) ABG pCO2 (35.0-45.0) mmHg ABG pO2 (80.0-100.0) mmHg ABG HCO3 (22.0-26.0) meq/L ABG O2 Saturation (96.0-97.0) % ABG Base Excess (-2-2.0) A-a Gradient mmHg O2 Delivery Device FiO2 (21.00-100.00) % Sodium 136 (136-145) mEq/L Potassium 3.8 (3.5-5.1) mEq/L Chloride 104 (98-107) mEq/L Carbon Dioxide 25 (21-32) mEq/L Anion Gap 10.8 (5-15) BUN 22 H (7-18) mg/dL Creatinine 1.4 H (0.7-1.3) mg/dL Est Cr Clr Drug Dosing 34.78 mL/min Estimated GFR (MDRD) 48 (>60) mL/min BUN/Creatinine Ratio 15.7 (14-18) Glucose 131 H (83-115) mg/dL Lactic Acid (0.4-2.0) mmol/L Calcium 8.4 L (8.5-10.1) mg/dL Magnesium 1.9 (1.8-2.4) mg/dl Total Bilirubin 0.7 (0.2-1.0) mg/dL AST 23 (15-37) U/L ALT 25 (16-63) U/L Alkaline Phosphatase 45 L (46-116) U/L Troponin I < 0.017 (0.00-0.056) ng/mL NT-Pro-B Natriuret Pep (0-450) pg/mL Total Protein 6.6 (6.4-8.2) g/dl Albumin 3.2 L (3.4-5.0) g/dl Globulin 3.4 gm/dL Albumin/Globulin Ratio 0.9 L (1-2) Urine Color (Yellow) Urine Appearance (Clear) Urine pH (5.0-8.0) Ur Specific [place] (1.005-1.030) Urine Protein (Negative) Urine Glucose (UA) (Negative) Urine Ketones (Negative) Urine Occult Blood (Negative) Urine Nitrite (Negative) Urine Bilirubin (Negative) Urine Urobilinogen (0.2-1.0) Ur Leukocyte Esterase (Negative) Urine RBC (0-5) /hpf Urine WBC (0-5) /hpf Ur Epithelial Cells (0-5) /hpf Urine Bacteria (FEW) /hpf Urine Mucus (FEW) /hpf 05/01/18 05/01/18 05/01/18 Range/Units 00:45 00:45 01:00 WBC (4.23-9.07) K/mm3 RBC (4.63-6.08) M/mm3 Hgb (13.7-17.5) gm/L Hct (40.1-51.0) % MCV (79.0-92.2) fl MCH (25.7-32.2) pg MCHC (32.2-35.5) g/dl RDW Std Deviation (35.1-43.9) fL Plt Count (163-337) K/mm3 MPV (9.4-12.3) fl Neutrophils % (Manual) (40-60) % Band Neutrophils % (0-10) % Lymphocytes % (Manual) (20-40) % Atypical Lymphs % % Monocytes % (Manual) (2-10) % Eosinophils % (Manual) (0.8-7.0) % Basophils % (Manual) (0.2-1.2) Myelocytes % Platelet Estimate Plt Morphology Comment RBC Morph Comment PT (9.5-12.1) SECONDS INR APTT (24-31) SECONDS D-Dimer, Quantitative (0.19-0.50) mg/L Puncture Site Rt brachial ABG pH 7.44 (7.35-7.45) ABG pCO2 32.2 L (35.0-45.0) mmHg ABG pO2 68.0 L (80.0-100.0) mmHg ABG HCO3 21.5 L (22.0-26.0) meq/L ABG O2 Saturation 94.2 L (96.0-97.0) % ABG Base Excess -1.5 (-2-2.0) A-a Gradient 26 mmHg O2 Delivery Device Room air FiO2 21.00 (21.00-100.00) % Sodium (136-145) mEq/L Potassium (3.5-5.1) mEq/L Chloride (98-107) mEq/L Carbon Dioxide (21-32) mEq/L Anion Gap (5-15) BUN (7-18) mg/dL Creatinine (0.7-1.3) mg/dL Est Cr Clr Drug Dosing mL/min Estimated GFR (MDRD) (>60) mL/min BUN/Creatinine Ratio (14-18) Glucose (83-115) mg/dL Lactic Acid 0.5 (0.4-2.0) mmol/L Calcium (8.5-10.1) mg/dL Magnesium (1.8-2.4) mg/dl Total Bilirubin (0.2-1.0) mg/dL AST (15-37) U/L ALT (16-63) U/L Alkaline Phosphatase (46-116) U/L Troponin I (0.00-0.056) ng/mL NT-Pro-B Natriuret Pep 190 (0-450) pg/mL Total Protein (6.4-8.2) g/dl Albumin (3.4-5.0) g/dl Globulin gm/dL Albumin/Globulin Ratio (1-2) Urine Color (Yellow) Urine Appearance (Clear) Urine pH (5.0-8.0) Ur Specific [place] (1.005-1.030) Urine Protein (Negative) Urine Glucose (UA) (Negative) Urine Ketones (Negative) Urine Occult Blood (Negative) Urine Nitrite (Negative) Urine Bilirubin (Negative) Urine Urobilinogen (0.2-1.0) Ur Leukocyte Esterase (Negative) Urine RBC (0-5) /hpf Urine WBC (0-5) /hpf Ur Epithelial Cells (0-5) /hpf Urine Bacteria (FEW) /hpf Urine Mucus (FEW) /hpf 05/01/18 05/01/18 Range/Units 01:00 06:00 WBC (4.23-9.07) K/mm3 RBC (4.63-6.08) M/mm3 Hgb (13.7-17.5) gm/L Hct (40.1-51.0) % MCV (79.0-92.2) fl MCH (25.7-32.2) pg MCHC (32.2-35.5) g/dl RDW Std Deviation (35.1-43.9) fL Plt Count (163-337) K/mm3 MPV (9.4-12.3) fl Neutrophils % (Manual) (40-60) % Band Neutrophils % (0-10) % Lymphocytes % (Manual) (20-40) % Atypical Lymphs % % Monocytes % (Manual) (2-10) % Eosinophils % (Manual) (0.8-7.0) % Basophils % (Manual) (0.2-1.2) Myelocytes % Platelet Estimate Plt Morphology Comment RBC Morph Comment PT (9.5-12.1) SECONDS INR APTT (24-31) SECONDS D-Dimer, Quantitative (0.19-0.50) mg/L Puncture Site ABG pH (7.35-7.45) ABG pCO2 (35.0-45.0) mmHg ABG pO2 (80.0-100.0) mmHg ABG HCO3 (22.0-26.0) meq/L ABG O2 Saturation (96.0-97.0) % ABG Base Excess (-2-2.0) A-a Gradient mmHg O2 Delivery Device FiO2 (21.00-100.00) % Sodium (136-145) mEq/L Potassium (3.5-5.1) mEq/L Chloride (98-107) mEq/L Carbon Dioxide (21-32) mEq/L Anion Gap (5-15) BUN (7-18) mg/dL Creatinine (0.7-1.3) mg/dL Est Cr Clr Drug Dosing mL/min Estimated GFR (MDRD) (>60) mL/min BUN/Creatinine Ratio (14-18) Glucose (83-115) mg/dL Lactic Acid (0.4-2.0) mmol/L Calcium (8.5-10.1) mg/dL Magnesium 1.7 L (1.8-2.4) mg/dl Total Bilirubin (0.2-1.0) mg/dL AST (15-37) U/L ALT (16-63) U/L Alkaline Phosphatase (46-116) U/L Troponin I (0.00-0.056) ng/mL NT-Pro-B Natriuret Pep (0-450) pg/mL Total Protein (6.4-8.2) g/dl Albumin (3.4-5.0) g/dl Globulin gm/dL Albumin/Globulin Ratio (1-2) Urine Color Yellow (Yellow) Urine Appearance Clear (Clear) Urine pH 7.0 (5.0-8.0) Ur Specific [place] 1.010 (1.005-1.030) Urine Protein Negative (Negative) Urine Glucose (UA) Negative (Negative) Urine Ketones Negative (Negative) Urine Occult Blood Negative (Negative) Urine Nitrite Negative (Negative) Urine Bilirubin Negative (Negative) Urine Urobilinogen 0.2 (0.2-1.0) Ur Leukocyte Esterase Negative (Negative) Urine RBC 0-5 (0-5) /hpf Urine WBC 0-5 (0-5) /hpf Ur Epithelial Cells 0-5 (0-5) /hpf Urine Bacteria Rare (FEW) /hpf Urine Mucus Not seen (FEW) /hpf Result Diagrams: 05/01/18 00:45 05/01/18 00:45 - Problem List (1) CAD (coronary artery disease) of artery bypass graft SNOMED Code(s): 578907228, 36495153, 274709411, 753471713, 653743565 ICD Code: I25.810 - ATHEROSCLEROSIS OF CABG W/O ANGINA PECTORIS Status: Acute Current Visit: Yes (2) Hyperlipidemia SNOMED Code(s): 43344365 ICD Code: E78.5 - HYPERLIPIDEMIA, UNSPECIFIED Status: Acute Current Visit : Yes (3) Hypertension SNOMED Code(s): 60146203 ICD Code: I10 - ESSENTIAL (PRIMARY) HYPERTENSION Status: Acute Current Visit: Yes (4) BPH (benign prostatic hyperplasia) SNOMED Code(s): 363882438 ICD Code: N40.0 - BENIGN PROSTATIC HYPERPLASIA WITHOUT LOWER URINRY TRACT SYMP Status: Acute Current Visit: Yes (5) CKD (chronic kidney disease) SNOMED Code(s): 387593425 ICD Code: N18.9 - CHRONIC KIDNEY DISEASE, UNSPECIFIED Status: Acute Current Visit: Yes (6) NHL (non-Hodgkin's lymphoma) SNOMED Code(s): 980117505 ICD Code: C85.90 - NON-HODGKIN LYMPHOMA, UNSPECIFIED, UNSPECIFIED SITE Status: Acute Current Visit: Yes (7) Follicular lymphoma SNOMED Code(s): 981706904, 323352242 ICD Code: C82.90 - FOLLICULAR LYMPHOMA, UNSPECIFIED, UNSPECIFIED SITE Status: Acute Current Visit: Yes (8) Intravascular volume depletion SNOMED Code(s): 32547582, 74157262 ICD Code: E86.1 - HYPOVOLEMIA Status: Acute Current Visit: Yes Problem List Initiated/Reviewed/Updated: Yes Orders Last 24hrs: Active Orders 24 hr Category Date Time Status Admission Status [Patient Status] [ADT] Routine ADT 05/01/18 04:58 Active Orthostatic Vital Signs [RC] STAT Care 05/01/18 01:57 Active Orthostatic Vital Signs [RC] STAT Care 05/01/18 03:16 Active Full Liquid Diet [DIET] Diet 05/01/18 Breakfast Active Chest 2V [CR] Stat Exams 05/01/18 00:37 Taken CORTISOL [REF] Routine Lab 05/01/18 00:45 Received CULTURE BLOOD [BC] Stat Lab 05/01/18 00:45 Received CULTURE BLOOD [BC] Stat Lab 05/01/18 00:55 Received UA W/MICROSCOPIC [URIN] Stat Lab 05/01/18 01:00 Ordered Sodium Chloride 0.9% [Normal Saline] 1,000 ml Med 05/01/18 04:45 Active IV ASDIRECTED Sodium Chloride 0.9% [Normal Saline] 1,000 ml Med 05/01/18 08:30 Active IV ASDIRECTED Blood Culture x2 Reflex Set [OM.PC] Stat Oth 05/01/18 00:34 Ordered Code Status [Resuscitation Status] Routine Resus Stat 05/01/18 08:11 Ordered Medication Orders Sodium Chloride (Normal Saline) 1,000 mls @ 150 mls/hr IV ASDIRECTED ELIZABETH Last Admin: 05/01/18 07:50 Dose: 150 mls/hr Infusion: 05/01/18 07:50 Dose: 150 mls/hr Admin: 05/01/18 04:54 Dose: 150 mls/hr Sodium Chloride (Normal Saline) 1,000 mls @ 200 mls/hr IV ASDIRECTED ELIZABETH Last Admin: 05/01/18 08:49 Dose: 200 mls/hr Assessment/Plan Comment:: Impression: Dehydration; reportedly febrile Orthostatic in the ED Acute on chronic renal insufficiency Query respiratory infection, persistent cough History of NHL S/P CTX for Follicular Lymphoma, week March 29 Pancytopenia Chronic CAD with recent PCI, January 2018 HLD HTN BPH Plan: IVF, 3 liter bolus, then run at 200 cc/hr Anti-emetic Resp infectious work up Droplet Isolation Daily Labs Home meds DVT/GI prophylaxis
[2018-05-01] MEDS ORDERED: [UNRECOGNIZED DRUG - OTHER] IVPUSH SCH (10:45)
[2018-05-01] MEDS ORDERED: DEXAMETHASONE 4 MG PO SCH (10:45)
[2018-05-01] MEDS ORDERED: Acetaminophen 325 MG Tab PO PRN (11:36)
[2018-05-01] MEDS ORDERED: Ondansetron 4 MG/2 ML SDV IVPUSH PRN (11:38)
[2018-05-01] MEDS ORDERED: Magnesium Sulfate/Water 2 GM in Premix Bag 1 BAG IV ONE (12:23)
[2018-05-01] MEDS ORDERED: Enoxaparin 40 MG/0.4 ML Syringe SUBCUT SCH (14:00)
[2018-05-01] MEDS: Loratadine 10 MG Tab PO SCH (16:29)
[2018-05-01] MEDS: guaiFENesin/Dextromethorphan 100-10 MG/5 ML Soln 5 ML Cup PO PRN (16:29)
[2018-05-01] MEDS: Clopidogrel 75 MG Tab PO SCH (17:47)
[2018-05-01] MEDS: amLODIPine 10 MG Tab PO SCH (17:48)
[2018-05-01] MEDS: Carvedilol 12.5 MG Tab PO SCH (17:48)
[2018-05-01] MEDS ORDERED: Metoprolol Tartrate 5 MG/5 ML SDV IVPUSH PRN (19:24)
[2018-05-01] MEDS: Benzonatate 100 MG Cap PO SCH (20:29)
[2018-05-02] MEDS: Sodium Chloride 0.9% 1,000 ML IV SCH (00:20)
[2018-05-02] MEDS: guaiFENesin/Dextromethorphan 100-10 MG/5 ML Soln 5 ML Cup PO PRN (00:24)
[2018-05-02] MEDS: Acyclovir 200 MG Cap PO SCH ×2 (05:18→08:40)
[2018-05-02] MEDS: Carvedilol 12.5 MG Tab PO SCH (06:23)
[2018-05-02] MEDS: amLODIPine 10 MG Tab PO SCH (08:40)
[2018-05-02] MEDS: Benzonatate 100 MG Cap PO SCH (08:40)
[2018-05-02] MEDS: Loratadine 10 MG Tab PO SCH (08:40)
[2018-05-02] MEDS: Clopidogrel 75 MG Tab PO SCH (08:40)
--- NOTE | 2018-05-02 08:40 | CR ---
Chest: Two views of the chest are obtained. Comparison: Prior chest x-ray of 05/01/18. Heart is slightly enlarged. Tortuous thoracic aorta is seen. Increasing interstitial change within the perihilar markings is seen which is felt compatible with slight worsening bronchitis. Lungs otherwise are clear. Infusion port seen entering from the right side. Bony structure show degenerative spurring within the spine. Impression: 1. Increasing perihilar interstitial changes most likely representing worsening bronchitis. 2. Other incidental findings. Diagnostic code #3
--- NOTE | 2018-05-02 08:40 | CR ---
Chest: Two views of the chest were obtained. Comparison: Prior chest x-ray of 04/12/18. Heart is slightly enlarged. Tortuous thoracic aorta is seen. Mild bronchitis appears to be present. No alveolar type densities of pneumonia are seen. Bony structures show mild degenerative endplate spurring within the mid thoracic spine. Impression: 1. Findings suspicious for mild bronchitis. 2. Other incidental findings. Diagnostic code #3
[2018-05-02] MEDS ORDERED: Aspirin 81 MG Tab.EC PO SCH (09:00)
[2018-05-02] MEDS ORDERED: Non-Formulary Medication 1 Each (Fluticasone/Vilanterol 1 EACH) IH SCH (09:00)
[2018-05-02] MEDS ORDERED: Tamsulosin 0.4 MG Cap.ER PO SCH (09:00)
[2018-05-02] MEDS ORDERED: ISOSORBIDE MONONITRATE 15 MG PO SCH (09:00)
--- NOTE | 2018-05-02 11:01 | PCM.DCSUM1 ---
Discharge Summary - Hospital Course HPI Initial Comments: 82 year old male with newly diagnosed follicular lymphoma currently on palliative treatment every other month. The last treatment was March 29. He presented to the ED with a complaint of an elevated temperature, 101.0F. However on site his temp was less than 100.5F. He is being admitted for dehydration associated with orthostatics. He has had a 10 pound weight loss, nausea and vomiting. The patient is being admitted to obs with telemetry. He is a full code. Diagnosis: Stroke: No - Discharge Data Discharge Date: 05/02/18 Discharge Disposition: Home, Self-Care 01 Condition: Good - Patient Summary/Data Operative Procedure(s) Performed: None Complications: None Consults: Consultations 05/02/18 08:00 Consult to Physical Therapy [PT Evaluation and Treatment] [CONS] Routine 05/02/18 09:00 Consult to Occupational Therapy [OT Evaluation and Treatment] [CONS] Routine 05/02/18 10:00 Consult to Case Management [CONS] Routine Labs Pending at D/C: Strep pneumoniae Respiratory viral panel Cortisol Recommended Follow-up Testing/Procedures: PCP in 7-10 days Planned Operative Procedure(s) after DC: None Hospital Course: A/P: Acute: Dehydration * Reportedly febrile at home, temp in ED 100.5 * Orthostatic in the ED --> improved * Received IVF NS 3 Liter bolus fluids then 200 ml/hr Query respiratory infection, persistent cough * Viral panel ordered and pending * Mycoplasma pneumoniae and Group A strep negative * John rangel at discharge Pancytopenia * S/P CTX for Follicular Lymphoma * No transfusion needed at this point Follicular lymphoma * Currently receiving chemotherapy with his most recent dose on 03/07/2018 Acute on chronic renal insufficiency, stable Hypomagnesemia * 1.7 in ED and improved to 1.8 * Received Mg Sulfate 2gm IV x 1 in ED Chronic: CAD with recent PCI, January 2018 HLD HTN BPH History of NHL Plan: Observation with Tele IVF, 3 liter bolus then run at 200 cc/hr Anti-emetic Resp infectious work up Droplet Isolation Daily Labs Home meds DVT prophylaxis: Lovenox Code status: Full PCP: Dr. Trenton Iyer Hospital Course: Jayy was admitted under observation for dehydration and orthostatics. He has improved during his stay. Patient has lymphoma and is currently receiving chemotherapy with his most recent dose on 03/07/2018. His work-up in the ED showed CBC remarkable for pancytopenia but transfusion was not required. CMP remarkable for BUN 22, Cr 1.4, eGFR 48, glucose 131, Ca 8.4, and albumin 3.2. Mg was low at 1.7. D-dimer was mildly elevated at 0.78 and documented as well within the expected range for a patient of his age with his renal function and history of cancer. ABG in ED showed pCO2 32.2, pO2 68. Latic acid was 0.5. BNP was 190. UA also performed in ED and was negative. CXR in ED read as findings suspicious for mild bronchitis. He was orthostatic in ED. Patient received NS 3 liters then was ran continuously at 200 ml/hr. Patient also received Mg repletion. Group A strep and mycoplasma pneumoniae was negative. Respiratory viral panel and strep pneumoniae were ordered and pending at discharge. Blood cultures show no growth after 1 day. Orthostatics improved after IV fluids. Recommend patient see his PCP in 7-10 days. New/updated medications at discharge : Tessalon perles 200 mg po BID and Robitussin DM 10 ml po q 6 hr prn cough. Patient is stable and ready for discharge home today. Patient agreeable to this plan. - Patient Instructions Diet: Heart Healthy Diet, Usual Diet as Tolerated Activity: As Tolerated Driving: May Drive Today Showering/Bathing: May Shower Notify Provider of: Fever, Swelling and Redness, Nausea and/or Vomiting - Discharge Plan Prescriptions/Med Rec: Benzonatate [Tessalon Perle] 200 mg PO BID #30 capsule Dextromethorphan/guaiFENesin [Robitussin DM] 10 ml PO Q6H PRN #240 cup PRN Reason: Cough Home Medications: Home Meds Tamsulosin [Flomax] 0.4 mg PO DAILY 03/20/16 [History] amLODIPine Besylate [Amlodipine Besylate] 10 mg PO DAILY 03/20/16 [History] Carvedilol [Coreg] 25 mg PO BID 02/16/17 [History] Aspirin [Halfprin] 81 mg PO DAILY 04/29/18 [History] Clopidogrel [Plavix] 75 mg PO DAILY 04/29/18 [History] Dexamethasone [Decadron] 4 mg PO ASDIRECTED 04/29/18 [History] Nitroglycerin [Nitrostat] 0.4 mg SL ASDIRECTED PRN 04/29/18 [History] Obinutuzumab [Gazyva] 1,000 mg IV ASDIRECTED 04/29/18 [History] [place]-3/DHA/Epa/Fish Oil [[place] 3 500 Softgel] 2 each PO DAILY 04/29/18 [History ] Ondansetron HCl [Zofran] 4 mg PO Q6HR PRN 04/29/18 [History] Promethazine [Phenergan] 0.5 ml TOP ASDIRECTED PRN 04/29/18 [History] Acyclovir 400 mg PO BID 05/01/18 [History] Benzonatate [Tessalon Perle] 200 mg PO BID #30 capsule 05/02/18 [Rx] Dextromethorphan/guaiFENesin [Robitussin DM] 10 ml PO Q6H PRN #240 cup 05/02/18 [Rx] Patient Handouts: Dehydration, Adult, [id number] Referrals: Trenton Fletcher MD [Primary Care Provider] - 05/09/18 4:15 pm (Please follow up with Dr. Fletcher on May 09 at 4:15pm.) - Discharge Summary/Plan Comment DC Time >30 min.: Yes (45) - General Info Date of Service: 05/02/18 Admission Dx/Problem (Free Text: Admission Diagnosis/Problem Admission Diagnosis/Problem Volume depletion Subjective Update: In to see Jayy. He is laying comfortably in bed. He reports he feels much better after receiving IV fluids and has been urinating regularly. He states he feels stronger as well. Denies chest pain, dyspnea, or GI/ issues. Nursing has no concerns. He is ready for discharge today. Functional Status: Reports: Pain Controlled, Tolerating Diet, Ambulating, Urinating - Review of Systems General: Reports: No Symptoms. Denies: Fever, Chills HEENT: Reports: No Symptoms. Denies: Sinus Congestion, Sore Throat Pulmonary: Reports: No Symptoms. Denies: Shortness of Breath, Cough Cardiovascular: Reports: No Symptoms. Denies: Chest Pain, Palpitations Gastrointestinal: Reports: No Symptoms. Denies: Abdominal Pain, Constipation, Diarrhea, Nausea, Vomiting Genitourinary: Reports: Frequency (with intense IV hydration ). Denies: Dysuria , Burning Musculoskeletal: Reports: No Symptoms Skin: Reports: No Symptoms. Denies: Cyanosis, Pallor Neurological: Reports: No Symptoms. Denies: Confusion, Dizziness, Headache Psychiatric: Reports: No Symptoms. Denies: Confusion, Depression, Anxiety - Patient Data Vitals - Most Recent: Last Vital Signs Temp 98.4 F 05/02/18 08:39 Pulse 66 05/02/18 08:39 Resp 16 05/02/18 08:39 BP 127/63 05/02/18 08:40 Pulse Ox 96 05/02/18 08:39 Orthostatic Blood Pressure [ 144/76 Standing] Orthostatic Blood Pressure [ 136/83 Sitting] Orthostatic Blood Pressure [ 149/90 Supine] Weight - Most Recent: 199 lb 11.2 oz I&O - Last 24 hours: Intake & Output 05/01/18 05/02/18 05/02/18 22:59 06:59 14:59 Intake Total 5560 7514 Output Total 5245 1800 Balance 1592 5714 Lab Results - Last 24 hrs: Laboratory Results - last 24 hr 05/01/18 05/02/18 05/02/18 Range/Units 00:45 05:35 05:35 WBC 3.16 L (4.23-9.07) K/mm3 RBC 3.63 L (4.63-6.08) M/mm3 Hgb 11.1 L (13.7-17.5) gm/L Hct 31.8 L (40.1-51.0) % MCV 87.6 (79.0-92.2) fl MCH 30.6 (25.7-32.2) pg MCHC 34.9 (32.2-35.5) g/dl RDW Std Deviation 40.2 (35.1-43.9) fL Plt Count 110 L (163-337) K/mm3 MPV 9.7 (9.4-12.3) fl Neut % (Auto) 42.1 (34.0-67.9) % Lymph % (Auto) 25.3 (21.8-53.1) % [place] % (Auto) 28.5 H (5.3-12.2) % Eos % (Auto) 3.5 (0.8-7.0) Baso % (Auto) 0.6 (0.1-1.2) % Neut # (Auto) 1.33 L (1.78-5.38) K/mm3 Lymph # (Auto) 0.80 L (1.32-3.57) K/mm3 [place] # (Auto) 0.90 H (0.30-0.82) K/mm3 Eos # (Auto) 0.11 (0.04-0.54) K/mm3 Baso # (Auto) 0.02 (0.01-0.08) K/mm3 Manual Slide Review Abnormal smear Sodium 138 (136-145) mEq/L Potassium 3.5 (3.5-5.1) mEq/L Chloride 106 (98-107) mEq/L Carbon Dioxide 22 (21-32) mEq/L Anion Gap 13.5 (5-15) BUN 11 (7-18) mg/dL Creatinine 1.2 (0.7-1.3) mg/dL Est Cr Clr Drug Dosing 45.13 mL/min Estimated GFR (MDRD) 58 (>60) mL/min BUN/Creatinine Ratio 9.2 L (14-18) Glucose 103 (83-115) mg/dL Calcium 7.5 L (8.5-10.1) mg/dL Magnesium 1.9 1.8 (1.8-2.4) mg/dl Troponin I 0.023 (0.00-0.056) ng/mL Mycoplasma pneumon IgM Negative (NEGATIVE) YFN Results - Last 24 hrs: Microbiology 05/01/18 12:00 Quick Strep Confirmation Culture - Preliminary Throat Group A Streptococcus Rapid Screen - Final NEGATIVE STREP A SCREEN 05/01/18 00:55 Aerobic Blood Culture - Preliminary Blood - Venous - Lab Draw NO GROWTH AFTER 1 DAY Anaerobic Blood Culture - Preliminary NO GROWTH AFTER 1 DAY 05/01/18 00:45 Aerobic Blood Culture - Preliminary Blood - Venous NO GROWTH AFTER 1 DAY Anaerobic Blood Culture - Preliminary NO GROWTH AFTER 1 DAY Med Orders - Current: Current Medications Acetaminophen (Tylenol) 650 mg PO Q6H PRN PRN Reason: Pain/Fever Acyclovir (Zovirax) 400 mg PO BID COUNTS INCLUDE 234 BEDS AT THE [facility] Last Admin: 05/02/18 08:40 Dose: 400 mg Amlodipine Besylate (Norvasc) 10 mg PO DAILY COUNTS INCLUDE 234 BEDS AT THE [facility] Last Admin: 05/02/18 08:40 Dose: 10 mg Aspirin (Halfprin) 81 mg PO DAILY COUNTS INCLUDE 234 BEDS AT THE [facility] Last Admin: 05/02/18 08:40 Dose: 81 mg Benzonatate (Tessalon Perles) 200 mg PO BID COUNTS INCLUDE 234 BEDS AT THE [facility] Last Admin: 05/02/18 08:40 Dose: 200 mg Carvedilol (Coreg) 25 mg PO BIDMEALS COUNTS INCLUDE 234 BEDS AT THE [facility] Last Admin: 05/02/18 06:23 Dose: 25 mg Clopidogrel Bisulfate (Plavix) 75 mg PO DAILY COUNTS INCLUDE 234 BEDS AT THE [facility] Last Admin: 05/02/18 08:40 Dose: 75 mg Enoxaparin Sodium (Lovenox) 40 mg SUBCUT Q24H COUNTS INCLUDE 234 BEDS AT THE [facility] Last Admin: 05/01/18 13:59 Dose: 40 mg Guaifenesin/Phenylephrine HCl (Robitussin Dm) 10 ml PO Q6H PRN PRN Reason: Cough Last Admin: 05/02/18 00:24 Dose: 10 ml Loratadine (Claritin) 10 mg PO DAILY COUNTS INCLUDE 234 BEDS AT THE [facility] Last Admin: 05/02/18 08:40 Dose: 10 mg Metoprolol Tartrate (Lopressor) 5 mg IVPUSH Q6H PRN PRN Reason: heart rate >110 Non-Formulary Medication (Dexamethasone [Decadron]) 4 mg PO ASDIRECTED COUNTS INCLUDE 234 BEDS AT THE [facility] Non-Formulary Medication (Nitroglycerin [Nitrostat]) 0.4 mg SL ASDIRECTED PRN PRN Reason: Chest Pain Non-Formulary Medication (Obinutuzumab) 1,000 mg IV ASDIRECTED COUNTS INCLUDE 234 BEDS AT THE [facility] Ondansetron HCl (Zofran) 4 mg IVPUSH Q8H PRN PRN Reason: Nausea/Vomiting Tamsulosin HCl (Flomax) 0.4 mg PO DAILY COUNTS INCLUDE 234 BEDS AT THE [facility] Last Admin: 05/02/18 08:40 Dose: 0.4 mg Discontinued Medications Sodium Chloride (Normal Saline) 1,000 mls @ 999 mls/hr IV ASDIRECTED COUNTS INCLUDE 234 BEDS AT THE [facility] Last Admin: 05/01/18 04:53 Dose: 999 mls/hr Sodium Chloride (Normal Saline) 1,000 mls @ 999 mls/hr IV ONETIME ONE Stop: 05/01/18 03:07 Last Admin: 05/01/18 04:51 Dose: Not Given Sodium Chloride (Normal Saline) 1,000 mls @ 999 mls/hr IV ONETIME ONE Stop: 05/01/18 04:15 Last Admin: 05/01/18 04:21 Dose: 999 mls/hr Sodium Chloride (Normal Saline) 1,000 mls @ 150 mls/hr IV ASDIRECTED ELIZABETH Last Infusion: 05/01/18 07:50 Dose: Infused Sodium Chloride (Normal Saline) 1,000 mls @ 999 mls/hr IV Q1H COUNTS INCLUDE 234 BEDS AT THE [facility] Stop: 05/01/18 08:19 Last Admin: 05/01/18 07:53 Dose: 999 mls/hr Sodium Chloride (Normal Saline) 1,000 mls @ 200 mls/hr IV ASDIRECTED ELIZABETH Stop: 05/02/18 07:00 Last Admin: 05/02/18 00:20 Dose: 200 mls/hr Magnesium Sulfate 2 gm/ Premix 50 mls @ 25 mls/hr IV ONETIME ONE Stop: 05/01/18 14:22 Last Admin: 05/01/18 13:12 Dose: 25 mls/hr - Exam Quality Assessment: Denies: Supplemental Oxygen General: Reports: Alert, Oriented, Cooperative, No Acute Distress HEENT: Reports: Pupils Equal, Pupils Reactive, EOMI, Mucous Membr. Moist/[place] Neck: Reports: Supple, Trachea Midline. Denies: Lymphadenopathy Lungs: Reports: Clear to Auscultation, Normal Respiratory Effort Cardiovascular: Reports: Regular Rate, Regular Rhythm, No Murmurs GI/Abdominal Exam: Normal Bowel Sounds, Soft, Non-Tender, No Distention (Male) Exam: Deferred Rectal (Males) Exam: Deferred Back Exam: Reports: Normal Inspection, Full Range of Motion Extremities: Normal Inspection, Normal Range of Motion, Non-Tender, No Pedal Edema Skin: Reports: Warm, Dry, Intact Neurological: Reports: No New Focal Deficit, Strength Equal Bilateral, Cranial Nerves Intact (grossly) Psy/Mental Status: Reports: Alert, Normal Affect, Normal Mood
[2018-05-02 12:05] VITALS: BP 122/74
== END 2018-05-02 13:10 | disposition home or self-care (01) ==
LOC: JD.ED 23:38 → JD.MS 05-01 05:02
PROVIDERS: ADMIT Internal Medicine Cardiovascular Disease; ATTEND Internal Medicine Cardiovascular Disease
DX: E86.0 Dehydration (principal); R50.9 Fever, unspecified; E86.9 Volume depletion, unspecified; E78.5 Hyperlipidemia, unspecified; C82.90 Follicular lymphoma, unspecified, unspecified site; I25.10 Atherosclerotic heart disease of native coronary artery without angina pectoris; I12.9 Hypertensive chronic kidney disease with stage 1 through stage 4 chronic kidney disease, or unspecified chronic kidney disease; N18.9 Chronic kidney disease, unspecified; N40.0 Benign prostatic hyperplasia without lower urinary tract symptoms; Z79.82 Long term (current) use of aspirin; Z79.899 Other long term (current) drug therapy; Z92.21 Personal history of antineoplastic chemotherapy; Z88.8 Allergy status to other drugs, medicaments and biological substances; M19.90 Unspecified osteoarthritis, unspecified site
CPT/HCPCS: 36415; 36600; 71046; 80048; 80053; 81001; 82533; 82803; 83605; 83735; 83880; 84484; 85007; 85025; 85027; 85379; 85610; 85730; 86738; 87040; 87081; 87430; 87486; 87581; 87633; 87798; 87899; 93005; 96360; 96361; 97161; 97165; 99285; A9270; J1642; J1650; J7040; J3475

== ENCOUNTER 2021-05-05 03:39 | Emergency (ER) | payer MEDICARE, BC ==
--- NOTE | 2021-05-05 04:04 | EDM.PDOC ---
ED HPI GENERAL MEDICAL PROBLEM - General Chief Complaint: Cardiovascular Problem Stated Complaint: rhb Time Seen by Provider: 05/05/21 03:48 Source of Information: Reports: Patient, Family () History Limitations: Reports: No Limitations - History of Present Illness INITIAL COMMENTS - FREE TEXT/NARRATIVE: Mr. Villarreal is a very pleasant 85-year-old gentleman who now presents the ED stating that he woke up around 01:00 this morning with a sensation that his heart was beating fast, insofar that he heard it in his ears. He did not experience any chest palpitations, chest discomfort, dyspnea, nausea, vomiting, or diaphoresis. He denies prior similar symptoms. The patient states that he got up and checked his blood pressure, finding is SBP to be elevated in the 190s, with a HR of 110 bpm. The patient states that he took some Benadryl around 02:00 or 02:30, followed by his morning carvedilol. Here in the ED, the patient's initial BP is found to be elevated at 168/71, otherwise, he is hemodynamically stable, afebrile, saturating 97% on room air. He appears to be comfortable, in no acute distress. He states that he is completely asymptomatic. The patient reports that he received his first COVID vaccine yesterday, 05/04/2021. Prior to this morning, the patient denies having a recent fever, chills, sore throat, ear pain, nasal or sinus congestion, cough, dyspnea, chest pain, palpitations, nausea, vomiting, constipation, diarrhea, abdominal pain, urinary symptoms, recent weight gain or weight loss, recent bloody bowel movements or black bowel movements, recent joint aches, headaches, or rashes. The patient's PCP is Dr. Trenton Iyer. - Related Data Allergies Allergy/AdvReac Type Severity Reaction Status Date / Time ciprofloxacin [From Cipro] Allergy Rash Verified 05/05/21 03:45 rosuvastatin calcium Allergy Muscle Verified 05/05/21 03:45 [From Crestor] Weakness Home Meds: Home Meds Tamsulosin [Flomax] 0.4 mg PO DAILY 03/20/16 [History] amLODIPine Besylate [Amlodipine Besylate] 10 mg PO DAILY 03/20/16 [History] Carvedilol [Coreg] 25 mg PO BID 02/16/17 [History] Aspirin [Halfprin] 81 mg PO DAILY 04/29/18 [History] Clopidogrel [Plavix] 75 mg PO DAILY 04/29/18 [History] Nitroglycerin [Nitrostat] 0.4 mg SL ASDIRECTED PRN 04/29/18 [History] Obinutuzumab [Gazyva] 1,000 mg IV ASDIRECTED 04/29/18 [History] [place]-3/DHA/Epa/Fish Oil [[place] 3 500 Softgel] 2 each PO DAILY 04/29/18 [History] Promethazine [Phenergan] 0.5 ml TOP ASDIRECTED PRN 04/29/18 [History] dexAMETHasone [Decadron] 4 mg PO ASDIRECTED 04/29/18 [History] ondansetron HCL [Zofran] 4 mg PO Q6HR PRN 04/29/18 [History] Acyclovir 400 mg PO BID 05/01/18 [History] Benzonatate [Tessalon Perle] 200 mg PO BID #30 capsule 05/02/18 [Rx] Dextromethorphan/guaiFENesin [Robitussin DM] 10 ml PO Q6H PRN #240 cup 05/02/18 [Rx] Past Medical History HEENT History: Reports: Hard of Hearing, 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) Cardiovascular History: Reports: CAD, High Cholesterol, Hypertension Genitourinary History: Reports: BPH, Chronic Renal Insuffiency Musculoskeletal History: Reports: Arthritis, Other (See Below) (Polymyositis) Oncologic (Cancer) History: Reports: Non-Hodgkin's Lymphoma (Follicular lymphoma, s/p CTx) - Infectious Disease History Infectious Disease History: Reports: Chicken Pox, Measles, Mumps - Past Surgical History HEENT Surgical History: Reports: Cataract Surgery, Oral Surgery (dental extractions), Tonsillectomy Cardiovascular Surgical History: Reports: Coronary Artery Stent (x 2, January 2018), Vascular Surgery (Right Port-A-Cath) GI Surgical History: Reports: Colonoscopy, Hernia, Inguinal (right) Social & Family History - Tobacco Use Tobacco Use Status *Q: Never Tobacco User - Caffeine Use Caffeine Use: Reports: Coffee - Alcohol Use Alcohol Use History: Yes Alcohol Use Frequency: Socially - Recreational Drug Use Recreational Drug Use: No - Living Situation & Occupation Living situation: Reports: , with Spouse 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 ED EXAM, GENERAL - Physical Exam Exam: See Below Exam Limited By: No Limitations General Appearance: Alert, WD/WN, No Apparent Distress Eye Exam: Bilateral Eye: EOMI, Normal Inspection Ears: Normal External Exam, Hearing Grossly Normal Nose: Normal Inspection Throat/Mouth: Normal Inspection, Normal Lips, Normal Voice, No Airway Compromise Head: Atraumatic, Normocephalic Neck: Normal Inspection, Full Range of Motion Respiratory/Chest: No Respiratory Distress, Lungs Clear, Normal Breath Sounds, No Accessory Muscle Use, Other (Right Port-A-Cath) Cardiovascular: Normal Peripheral Pulses, Regular Rate, Rhythm, No Gallop, No JVD, No Murmur, No Rub Peripheral Pulses: 3+: Radial (L), Radial (R) GI/Abdominal: Normal Bowel Sounds, Soft, Non-Tender, No Organomegaly, No Distention, No Abnormal Bruit, No Mass Back Exam: Normal Inspection, Full Range of Motion, NT Extremities: Normal Inspection, Normal Range of Motion, Normal Capillary Refill Neurological: Alert, Oriented, Normal Cognition, No Motor/Sensory Deficits Psychiatric: Normal Affect Skin Exam: Warm, Dry, Intact, Normal Color, No Rash #1 Interpretation EKG Date: 05/05/21 Time: 03:45 Rhythm: NSR Rate (Beats/Min): 89 [place]: Normal P-Wave: Enlarged (+LAE) QRS: Other (Late transition) ST-T: Normal QT: Normal Comparison: No Change (05/01/2018) Course - Vital Signs Last Recorded V/S: Last Vital Signs Temp 35.8 C L 05/05/21 03:46 Pulse 85 05/05/21 03:46 Resp 14 05/05/21 03:46 BP 168/71 H 05/05/21 03:46 Pulse Ox 97 05/05/21 03:46 - Orders/Labs/Meds Labs: Laboratory Tests 05/05/21 05/05/21 Range/Units 04:10 04:10 WBC 5.67 (4.23-9.07) K/mm3 RBC 5.19 (4.63-6.08) M/mm3 Hgb 15.8 D (13.7-17.5) gm/dl Hct 45.1 (40.1-51.0) % MCV 86.9 (79.0-92.2) fl MCH 30.4 (25.7-32.2) pg MCHC 35.0 (32.2-35.5) g/dl RDW Std Deviation 42.5 (35.1-43.9) fL Plt Count 128 L (163-337) K/mm3 MPV 9.9 (9.4-12.3) fl Neutrophils % (Manual) 53 (40-60) % Band Neutrophils % 7 (0-10) % Lymphocytes % (Manual) 17 L (20-40) % Atypical Lymphs % 13 % Monocytes % (Manual) 8 (2-10) % Eosinophils % (Manual) 0 L (0.8-7.0) % Basophils % (Manual) 2 H (0.2-1.2) Toxic Granulation 1+ slight Platelet Estimate Decreased Plt Morphology Comment Normal RBC Morph Comment Normal Sodium 142 (136-145) mEq/L Potassium 4.0 (3.5-5.1) mEq/L Chloride 105 (98-107) mEq/L Carbon Dioxide 27 (21-32) mEq/L Anion Gap 14.0 (5-15) BUN 20 H (7-18) mg/dL Creatinine 1.4 H (0.7-1.3) mg/dL Est Cr Clr Drug Dosing 36.64 mL/min Estimated GFR (MDRD) 48 (>60) mL/min BUN/Creatinine Ratio 14.3 (14-18) Glucose 103 H (70-99) mg/dL Calcium 8.8 (8.5-10.1) mg/dL Magnesium 2.0 (1.8-2.4) mg/dL Total Bilirubin 0.6 (0.2-1.0) mg/dL AST 18 (15-37) U/L ALT 22 (16-63) U/L Alkaline Phosphatase 54 (46-116) U/L Troponin I < 0.017 (0.00-0.056) ng/mL Total Protein 6.6 (6.4-8.2) g/dl Albumin 3.8 (3.4-5.0) g/dl Globulin 2.8 gm/dL Albumin/Globulin Ratio 1.4 (1-2) - Re-Assessments/Exams Free Text/Narrative Re-Assessment/Exam: 05/05/21 04:01 As above, the patient woke around 01:00 this morning with the suspicion that his heart was racing, because he could hear it in his ears, although he did not have any palpitations. He checked his blood pressure, finding it to be 190, with a HR of 110 BPM. He took a Benadryl around 02:00 or 02:30, along with his morning carvedilol. Here in the ED, he is completely asymptomatic, while his blood pressure is modestly elevated, he is not tachycardic. An ECG, obtained at triage, shows no ischemic changes. His physical exam is unremarkable. I have ordered a work-up that includes some blood tests. 05/05/21 04:51 The patient's CBC is remarkable for thrombocytopenia of 128,000, with the remainder of his CBC being unremarkable. His CMP is remarkable for BUN/Cr elevated at 20/1.4, and mild hyperglycemia of 103, with remainder of his CMP being unremarkable. His magnesium level is within normal limits at 2.0. His troponin is undetectably low. 05/05/21 05:30 Test results discussed with the patient and his . As above, today's work-up is unremarkable. I cannot say why he had the earlier tachycardia, but he has not had any since arriving to the ED, and it does not appear to be due to anything serious. I will discharge him home. Departure - Departure Time of Disposition: 05:31 Disposition: Home, Self-Care 01 Condition: Good Clinical Impression: Tachycardia Instructions: Sinus Tachycardia Referrals: Trenton Fletcher MD [Physician] - Forms: ED Department Discharge Additional Instructions: You were seen in the emergency room after developing a rapid heartbeat early this morning. Work-up in the ER included several blood tests and an ECG, all of which were unremarkable. The cause of your rapid heart rate is not known, but does not appear to be due to anything serious. We recommend that you continue your current medications, as prescribed. If any other problems, please do not hesitate to return to the ER. Sepsis Event Note (ED) - Evaluation Sepsis Screening Result: No Definite Risk - Focused Exam Vital Signs: Vital Signs Temp Pulse Resp BP Pulse Ox 05/05/21 03:46 35.8 C L 85 14 168/71 H 97
[2021-05-05 04:33] VITALS: BP 168/71; PULSE 85
== END 2021-05-05 05:39 | disposition home or self-care (01) ==
LOC: JD.ED 03:39
DX: R00.0 Tachycardia, unspecified (principal); I25.10 Atherosclerotic heart disease of native coronary artery without angina pectoris; E78.00 Pure hypercholesterolemia, unspecified; I12.9 Hypertensive chronic kidney disease with stage 1 through stage 4 chronic kidney disease, or unspecified chronic kidney disease; N18.9 Chronic kidney disease, unspecified; M19.90 Unspecified osteoarthritis, unspecified site; Z88.1 Allergy status to other antibiotic agents; Z88.8 Allergy status to other drugs, medicaments and biological substances; Z79.82 Long term (current) use of aspirin; Z79.02 Long term (current) use of antithrombotics/antiplatelets; Z79.899 Other long term (current) drug therapy
CPT/HCPCS: 36415; 80053; 83735; 84484; 85007; 85027; 93005; 93010; 99283; 99285-25

== ENCOUNTER 2021-08-13 14:52 | Emergency (ER) | payer MEDICARE, BC ==
[2021-08-13 15:13] VITALS: BP 159/94; PULSE 74
--- NOTE | 2021-08-13 16:31 | CR ---
Pelvis and right hip: AP view of the pelvis was obtained as well as AP and frog leg lateral views of the right hip. Comparison: No prior hip or pelvis study is available. Sacroiliac joints are within normal limits. Mild joint space narrowing is seen within the left hip. Joint space within the right hip is preserved. Vascular calcification is noted. Phleboliths are seen within the pelvis. Impression: 1. Mild joint space narrowing within the left hip. 2. Mild vascular calcification. 3. No other abnormality is seen on AP pelvis or 2-view right hip exam. Diagnostic code #2
--- NOTE | 2021-08-13 16:32 | CR ---
Lumbar spine: AP, lateral and coned-down lateral view centered to the lumbosacral junction were obtained. Comparison: No previous lumbar spine study is available. Posterior disc space narrowing is noted at T12-L1, L1-2 and L2-3. Moderate to severe disc space narrowing is noted at L3-4. Moderate disc space narrowing is seen at L4-5. L5-S1 disc is minimally narrowed. Slight spondylolisthesis is seen at L5-S1 by about 3 mm. There appears to be spondylolytic defects at L5-S1. Scattered anterior and lateral osteophytes are seen. Slight scoliosis is noted. Osteopenia is present. Vascular calcification is seen within the abdominal aorta. Impression: 1. Diffuse degenerative change as noted above. 2. 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 3. Mild scoliosis and vascular calcification. Diagnostic code #3
--- NOTE | 2021-08-13 16:52 | EDM.PDOC ---
ED HPI GENERAL MEDICAL PROBLEM - General Chief Complaint: Back Pain or Injury Stated Complaint: R HIP AND BACK PAIN Time Seen by Provider: 08/13/21 15:12 Source of Information: Reports: Patient, RN Notes Reviewed History Limitations: Reports: No Limitations - History of Present Illness INITIAL COMMENTS - FREE TEXT/NARRATIVE: Patient is an 86-year-old male presenting to the emergency department with complaints of right-sided low back pain into his right posterior hip. He reports he was kneeling in front of the toilet changing a toilet seat when he fell backwards. He hit this area of his back on the corner of a hamper. He has been able to walk, however states it is uncomfortable. He took some Tylenol and one of his 's metaxalone prior to coming to ER and states that this did give him some relief. Denies any numbness or tingling of his right lower extremity. Lower Back Pain Score (Numeric/FACES): 3 - Related Data Allergies Allergy/AdvReac Type Severity Reaction Status Date / Time ciprofloxacin [From Cipro] Allergy Severe Rash Verified 08/13/21 15:13 rosuvastatin calcium Allergy Severe Muscle Verified 08/13/21 15:13 [From Crestor] Weakness Home Meds: Home Meds Tamsulosin [Flomax] 0.4 mg PO DAILY 03/20/16 [History] amLODIPine Besylate [Amlodipine Besylate] 10 mg PO DAILY 03/20/16 [History] Carvedilol [Coreg] 25 mg PO BID 02/16/17 [History] Aspirin [Halfprin] 81 mg PO DAILY 04/29/18 [History] Clopidogrel [Plavix] 75 mg PO DAILY 04/29/18 [History] Nitroglycerin [Nitrostat] 0.4 mg SL ASDIRECTED PRN 04/29/18 [History] Obinutuzumab [Gazyva] 1,000 mg IV ASDIRECTED 04/29/18 [History] [place]-3/DHA/Epa/Fish Oil [[place] 3 500 Softgel] 2 each PO DAILY 04/29/18 [History] Promethazine [Phenergan] 0.5 ml TOP ASDIRECTED PRN 04/29/18 [History] dexAMETHasone [Decadron] 4 mg PO ASDIRECTED 04/29/18 [History] ondansetron HCL [Zofran] 4 mg PO Q6HR PRN 04/29/18 [History] Acyclovir 400 mg PO BID 05/01/18 [History] Benzonatate [Tessalon Perle] 200 mg PO BID #30 capsule 05/02/18 [Rx] Dextromethorphan/guaiFENesin [Robitussin DM] 10 ml PO Q6H PRN #240 cup 05/02/18 [Rx] Hydrocodone/Acetaminophen [Hydrocodone-Acetamin 5-325 mg] 0.5 - 1 each PO Q4H PRN #12 tablet 08/13/21 [Rx] Past Medical History HEENT History: Reports: Hard of Hearing, Impaired Vision Other HEENT History: blind in left eye Cardiovascular History: Reports: CAD, High Cholesterol, Hypertension Other Cardiovascular History: heart event monitor Respiratory History: Reports: Other (See Below) Other Respiratory History: pulmonary nodule Gastrointestinal History: Reports: None Genitourinary History: Reports: BPH, Chronic Renal Insuffiency [employer] History: Reports: None Musculoskeletal History: Reports: Arthritis, Other (See Below) Other Musculoskeletal History: polymyocystis Neurological History: Reports: None Psychiatric History: Reports: None Endocrine/Metabolic History: Reports: None Hematologic History: Reports: Other (See Below) Immunologic History: Reports: Immunosuppression Oncologic (Cancer) History: Reports: Non-Hodgkin's Lymphoma Other Oncologic History: follicular lymphoma Dermatologic History: Reports: None - Infectious Disease History Infectious Disease History: Reports: Chicken Pox, Measles, Mumps, Novel Coronavirus - Past Surgical History HEENT Surgical History: Reports: Cataract Surgery, Oral Surgery, Tonsillectomy Cardiovascular Surgical History: Reports: Coronary Artery Stent, Vascular Surgery GI Surgical History: Reports: Colonoscopy, Hernia, Inguinal Dermatological Surgical History: Reports: Skin Biopsy Social & Family History - Family History Family Medical History: No Pertinent Family History Neurological: Reports: CVA - Tobacco Use Tobacco Use Status *Q: Never Tobacco User - Caffeine Use Caffeine Use: Reports: Coffee - Recreational Drug Use Recreational Drug Use: No - Living Situation & Occupation Living situation: Reports: , with Spouse 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 ED EXAM,LOWER BACK PAIN/INJURY - Physical Exam Exam: See Below General Appearance: Alert, WD/WN, No Apparent Distress Respiratory/Chest: No Respiratory Distress, Lungs Clear, Normal Breath Sounds, No Accessory Muscle Use, Chest Non-Tender Cardiovascular: Normal Peripheral Pulses, Regular Rate, Rhythm, No Edema, No Gallop, No JVD, No Murmur, No Rub Back Exam: Normal Inspection, Full Range of Motion, Paraspinal Tenderness (Right lateral L5-S1. Mild tenderness to right posterior hip. No ecchymosis or swel ling noted.) Neurological: Alert, Normal Mood/Affect, Normal Dorsiflexion, CN II-XII Intact, Normal Plantar Flexion, Normal Gait, Normal Reflexes, No Motor/Sensory Deficits, Oriented x 3 Psychiatric: Normal Affect, Normal Mood Skin Exam: Warm, Dry, Intact, Normal Color, No Rash Course - Vital Signs Last Recorded V/S: Last Vital Signs Temp 97.4 F 08/13/21 15:10 Pulse 74 08/13/21 15:10 Resp 16 08/13/21 15:10 BP 159/94 H 08/13/21 15:10 Pulse Ox 100 08/13/21 15:10 - Re-Assessments/Exams Free Text/Narrative Re-Assessment/Exam: 08/13/21 16:51 X-ray of the right hip, pelvis, and lumbar spine show degenerative changes but no acute abnormalities. Patient is likely suffering from contusion of his paraspinous muscle. He reports that heat and the Metaxalone that he took earlier did help. They do have more of this at home. I will recommend routine Tylenol as needed. I will send a short prescription of hydrocodone with Tylenol. I cautioned him to be very careful taking this medication. He should start by taking half a tablet as needed for pain. Discussed return precautions. Discharge instructions as documented. Departure - Departure Time of Disposition: 17:00 Disposition: Home, Self-Care 01 Condition: Good Clinical Impression: Back pain Qualifiers: Back pain location: low back pain Chronicity: acute Back pain laterality: right Sciatica presence: without sciatica Qualified Code(s): M54.50 - Low back pain, unspecified - Discharge Information *PRESCRIPTION DRUG MONITORING PROGRAM REVIEWED*: Yes *COPY OF PRESCRIPTION DRUG MONITORING REPORT IN PATIENT CHELI: No Prescriptions: Hydrocodone/Acetaminophen [Hydrocodone-Acetamin 5-325 mg] 0.5 - 1 each PO Q4H PRN #12 tablet PRN Reason: Pain Instructions: Chronic Back Pain, [id number] Referrals: Carol Fischer NP [Primary Care Provider] - Forms: ED Department Discharge Additional Instructions: Use Tylenol or ibuprofen as needed for discomfort. For pain not relieved by this, he needs hydrocodone with Tylenol 0.5-1 tab. You may use the metaxalone that you have at home as prescribed for muscle spasm. Apply heat over the area as needed. Follow-up in the clinic if not much better in the next few days. Return to ER as needed. Sepsis Event Note (ED) - Evaluation Sepsis Screening Result: No Definite Risk
== END 2021-08-13 17:13 | disposition home or self-care (01) ==
LOC: JD.ED 14:52
DX: M54.50 Low back pain, unspecified (principal); I25.10 Atherosclerotic heart disease of native coronary artery without angina pectoris; I12.9 Hypertensive chronic kidney disease with stage 1 through stage 4 chronic kidney disease, or unspecified chronic kidney disease; N18.9 Chronic kidney disease, unspecified; N40.0 Benign prostatic hyperplasia without lower urinary tract symptoms; M19.90 Unspecified osteoarthritis, unspecified site; Z88.1 Allergy status to other antibiotic agents; Z88.8 Allergy status to other drugs, medicaments and biological substances; Z79.82 Long term (current) use of aspirin; Z79.899 Other long term (current) drug therapy
CPT/HCPCS: 72100; 72100-26; 73502-26-RT; 73502-RT; 99283